=== PATIENT | male | born 1940 | race Hispanic/Latino ===

== ENCOUNTER 2018-05-20 08:27 | Inpatient (IN) | payer OTHER ==
[2018-05-20] MEDS ORDERED: ONDANSETRON 4 MG/2 ML VIAL ONE (09:10)
[2018-05-20] MEDS ORDERED: NA CHLORIDE 0.9% 500 ML ONE (09:10)
[2018-05-20 09:24] LABS: Absolute Lymphocytes (CBC) 0.3 K/uL (0.7-4.9); Absolute Monocytes 0.5 K/uL (0.1-1.3); Absolute Neutrophil 12.3 K/uL (1.8-8.0); Basophils % 0.2 % (0-1.3); Eosinophils % 0.7 % (0-4.4); Hematocrit 35.6 % (39.6-49.0); Lymphocytes % 2.2 % (15.3-44.8); MPV 8.6 fL (7.6-11.3); RBC Red Blood Cell Count 4.08 M/uL (4.33-5.43)
[2018-05-20 09:39] LABS: Albumin 2.6 g/dL (3.4-5.0); Bilirubin Direct 0.5 mg/dL (0-0.2); Bilirubin Total 1.1 mg/dL (0.2-1.0); Potassium 2.8 mmol/L (3.5-5.1); Protein, Total 7.2 g/dL (6.4-8.2)
[2018-05-20] MEDS ORDERED: KCL 20 MEQ/100 mL IVPB 20 MEQ/100 ML BAG IV ONE (10:31)
[2018-05-20] MEDS ORDERED: NA CHLORIDE 0.9% 250 ML ONE (10:31)
--- NOTE | 2018-05-20 10:35 | RAD REPORT ---
EXAM DESCRIPTION: CT - Abdomen Pelvis Wo Contrast - 05/20/2018 10:27 am CLINICAL HISTORY: Abdominal pain. N/V/D, hypotension COMPARISON: No comparisons TECHNIQUE: CT imaging of the abdomen and pelvis was performed without contrast. Solid organ, bowel a nd vascular assessment is limited due to lack of IV and oral contrast. All CT scans are performed using dose optimization technique as appropriate and may include automated exposure control or mA/KV adjustment according to patient size. FINDINGS: Tree-in-bud opacities are seen in the right middle lobe and both lower lobes. The liver, spleen, pancreas, adrenal glands are within normal limits for a limited non-contrast exami nation. Tiny caliceal renal calculi suspected bilaterally without hydronephrosis. Moderate aortic ath erosclerosis is seen. A significant thickening of the colon is present throughout its course suggesting moderate colitis. D iverticula are present in the sigmoid colon as well. The appendix is normal. Left total hip hardware is noted. Advanced right hip osteoarthritis. Moderate lumbosacral degenerativ e changes.Small right inguinal hernia containing fat and fluid. IMPRESSION: Moderate pancolitis is seen without pneumatosis coli or bowel obstruction. No evidence o f intra-abdominal abscess. Tree-in-bud opacities particularly in the right middle lobe probably are secondary to aspiration. A limited non-contrast examination was performed as detailed.
--- NOTE | 2018-05-20 10:53 | ER ---
Nurse's Notes [facility] Name: Yonny Gamez Age: 77 yrs Sex: Male : 1940 Arrival Date: 05/20/2018 Time: 08:33 Bed 14 Private MD: Wayne Geller R Diagnosis: Pancolitis;Dehydration;Hypokalemia;Hypotension Presentation: 05/20 08:35 Initial Sepsis Screen: Does the patient meet any 2 criteria? No. Patient's initial rb1 sepsis screen is negative. Does the patient have a suspected source of infection? No. Patient's initial sepsis screen is negative. 08:43 Presenting complaint: Patient states: diarrhea x 1 week with intermittent abd cramping. ss N/V that began this morning. Denies fever, also c/o fatigue. Transition of care: patient was not received from another setting of care. Onset of symptoms was May 13, 2018. Risk Assessment: Do you want to hurt yourself or someone else? Patient reports no desire to harm self or others. Initial Sepsis Screen:. Care prior to arrival: None. 08:43 Method Of Arrival: Ambulatory ss 08:43 Acuity: LORA 2 ss Historical: - Allergies: 08:45 No Known Allergies; ss - Home Meds: 08:45 acetaminophen 650 mg Oral TbER as needed [Active]; acetaminophen-codeine 300-30 mg Oral rb1 tab 1 tab every 6 hours [Active]; alprazolam 0.25 mg Oral tab 1 tab [Active]; aspirin 81 mg Oral TbEC 1 tab once daily [Active]; atorvastatin 10 mg Oral tab 1 tab once daily [Active]; benazepril 40 mg Oral tab 1 tab once daily [Active]; bumetanide 2 mg Oral tab 1.5 tab 2 times per day [Active]; carvedilol 12.5 mg Oral tab 1 tab 2 times per day [Active]; Entresto 24-26 mg Oral tab [Active]; finasteride 5 mg Oral tab 1 tab once daily [Active]; furosemide 40 mg Oral tab 1 tab once daily [Active]; gabapentin 100 mg Oral cap 1 caps 3 times per day [Active]; nitroglycerin 0.4 mg SL subl 1 tab every 5 minutes [Active]; sodium chloride 1 gram Oral tab [Active]; spironolactone 25 mg Oral tab 1 tab once daily [Active]; tamsulosin 0.4 mg Oral cp24 1 cap once daily [Active]; - PMHx: 08:45 CAD; CHF; enlarged prostate; Hernia; Hypertension; ss - PSHx: 08:45 prostate surgery; CABG; Hernia repair; left hip; ss - Immunization history:: Adult Immunizations up to date. - Social history:: Smoking status: Patient/guardian denies using tobacco. - Ebola Screening: : Patient denies exposure to infectious person Patient denies travel to an Ebola-affected area in the 21 days before illness onset. - Family history:: not pertinent. - Hospitalizations: : No recent hospitalization is reported. Screenin:35 Abuse screen: Denies threats or abuse. Nutritional screening: No deficits noted. rb1 Tuberculosis screening: No symptoms or risk factors identified. Fall Risk No fall in past 12 months (0 pts). Secondary diagnosis (15 points) impaired mobility, IV access (20 points). Ambulatory Aid- Crutches/Cane/Walker (15 pts). Gait- Impaired (20 pts.). Mental Status- Oriented to own ability (0 pts). Total Dubois Fall Scale indicates High Risk Score (45 or more points). Fall prevention measures have been instituted. Side Rails Up X 2 Placed Close to Nursing Station 1:1 Attendant Assigned Frequent Obs/Assessments Occuring Family Present and informed to notify staff if the need to leave the bedside As available patient and family educated on Fall Prevention Program and Strategies. Assessment: 08:35 General: Appears uncomfortable, slender, Behavior is calm, cooperative, Reports fatigue rb1 for Denies fever. Neuro: Level of Consciousness is awake, alert, obeys commands, Oriented to person, place, time, situation. Cardiovascular: Capillary refill < 3 seconds is brisk in bilateral fingers. Respiratory: Airway is patent Respiratory effort is even, unlabored, Respiratory pattern is regular, symmetrical. GI: Abdomen is non-distended, Reports diarrhea, nausea, vomiting. : No signs and/or symptoms were reported regarding the genitourinary system. Derm: Skin is pink, warm \T\ dry. 08:35 Pain: Denies pain. rb1 09:35 Reassessment: Patient appears in no apparent distress at this time. No changes from rb1 previously documented assessment. Family at bedside. 10:00 Reassessment: pt. is unable to drink the contrast; provider notified. Received order to rb1 scan without the contrast. 10:02 Reassessment: Called CT to inform them that Dr. Hugo said to scan the pt without the rb1 contrast. 10:30 Reassessment: Patient appears in no apparent distress at this time. Patient and/or rb1 family updated on plan of care and expected duration. Pain level reassessed. Patient is alert, oriented x 3, equal unlabored respirations, skin warm/dry/pink. Family at bedside. Patient denies pain at this time. 11:30 Reassessment: Patient appears in no apparent distress at this time. No changes from rb1 previously documented assessment. 12:30 Reassessment: Patient appears in no apparent distress at this time. Patient and/or rb1 family updated on plan of care and expected duration. Pain level reassessed. Patient is alert, oriented x 3, equal unlabored respirations, skin warm/dry/pink. Patient denies pain at this time. 12:35 Reassessment: Called report to TYREL Rey. Information from the SBAR was given. All rb1 questions asked and answered. Vital Signs: 08:45 BP 88 / 51; Resp 18; Temp 97.6(TE); Weight 61.23 kg; Height 5 ft. 6 in. (167.64 cm); Pain 0/10; 09:30 Pulse 93; Pulse Ox 96% on R/A; la1 09:30 BP 93 / 59; Pulse 94; Resp 24; Pulse Ox 96% on R/A; rb1 10:00 BP 87 / 53; Pulse 94; Resp 14; Pulse Ox 95% on R/A; dh3 10:38 BP 86 / 56; Pulse 92; Resp 13; Pulse Ox 97% on R/A; dh3 11:30 BP 92 / 65; Pulse 90; Resp 27; Pulse Ox 97% on R/A; rb1 12:00 BP 93 / 58; Pulse 90; Resp 30; Pulse Ox 98% on R/A; Pain 0/10; rb1 12:07 BP 93 / 58; Pulse 90; Resp 22; Pulse Ox 97% on R/A; rb1 08:45 Body Mass Index 21.79 (61.23 kg, 167.64 cm) ED Course: 08:33 Patient arrived in ED. sb2 08:33 Wayne Geller MD is Private Physician. sb2 08:35 Le[facility] Skelton F[facility] is [facility]. nh 08:35 Leno Hugo MD is Attending Physician. nh 08:35 Patient has correct armband on for positive identification. Bed in low position. Call rb1 light in reach. Side rails up X 1. electronic device monitor on. Pulse ox on. NIBP on. Warm blanket given. Pillow given. 08:36 Leno Hugo MD is Attending Physician. rn 08:38 Carrie Malik RN is Primary Nurse. rb1 08:44 Triage completed. ss 08:45 Arm band placed on right wrist. ss 09:01 EKG done, by ED staff, reviewed by Leno Hugo MD. dh3 09:10 Inserted saline lock: 22 gauge in right antecubital area, using aseptic technique. rb1 Blood collected. 10:24 CT completed. Patient tolerated procedure well. Patient moved back from CT. mw3 10:28 Abdomen In Process Unspecified. EDMS 10:51 Tacos Caldera MD is Hospitalizing Provider. rn 11:00 Inserted saline lock: 22 gauge in left forearm, using aseptic technique. rb1 12:50 No provider procedures requiring assistance completed. Patient admitted, IV remains in rb1 place. Administered Medications: 09:10 Drug: NS 0.9% 500 ml Route: IV; Rate: bolus; Site: right antecubital; rb1 09:43 Follow up: IV Status: Completed infusion rb1 09:10 Drug: Zofran 4 mg Route: IVP; Site: right antecubital; rb1 10:44 Follow up: Response: No adverse reaction; Nausea is decreased rb1 10:40 Drug: Potassium Chloride 20 mEq Route: IV; Rate: calculated rate; Site: right rb1 antecubital; 11:00 Follow up: Response: No adverse reaction rb1 12:50 Follow up: IV Status: Infusion continued upon admission rb1 10:40 Drug: NS 0.9% 250 ml Route: IV; Rate: calculated rate; Site: right antecubital; rb1 12:50 Follow up: IV Status: Infusion continued upon admission rb1 10:46 CANCELLED (provider changed order): Rocephin - (cefTRIAXone) 1 grams IVPB once over 30 rb1 mins; (mix in 50 mL NS) 11:00 Drug: Rocephin 1 grams Route: IV; Rate: calculated rate; Site: left forearm; rb1 11:30 Follow up: Response: No adverse reaction; IV Status: Completed infusion rb1 11:05 Drug: Flagyl 500 mg Volume: 100 ml; Route: IVPB; Rate: 200 ml/hr; Infused Over: 30 rb1 mins; Site: left forearm; 11:40 Follow up: Response: No adverse reaction; IV Status: Completed infusion rb1 Outcome: 10:53 Decision to Hospitalize by Provider. rn 12:50 Patient left the ED. rb1 12:50 Admitted to Med/surg accompanied by tech, family with patient, via wheelchair, room rb1 215, with chart, Report called to TYREL Rey 12:50 Condition: stable 12:50 Instructed on the need for admit. Signatures: Dispatcher [employer] EDMS Leanna Skelton, PROCEDURE TECH PROCEDURE TECH in Leno Hugo MD MD rn Smirch, Shelby, RN RN Armando Aldridge RN RN laCarrie Vigil RN RN rb1 Suri Gamez 3 Natasha Jorgensen 2 Jessi Christopher mw3 Corrections: (The following items were deleted from the chart) 13:52 13:50 Patient left the ED. rb1 rb1
--- NOTE | 2018-05-20 10:53 | EDPHYS ---
Physician Documentation [facility] Name: Yonny Gamez Age: 77 yrs Sex: Male : 1940 Arrival Date: 05/20/2018 Time: 08:33 Bed 14 Private MD: Wayne Geller R ED Physician Leno Hugo HPI: 05/20 09:09 This 77 yrs old Male presents to ER via Ambulatory with complaints of rn Nausea/Vomiting/Diarrhea. 09:09 The patient presents to the emergency department with nausea, vomiting, diarrhea. rn Onset: The symptoms/episode began/occurred 2 day(s) ago. Possible causes: unknown. The symptoms are aggravated by nothing. The symptoms are alleviated by nothing. Severity of symptoms: At their worst the symptoms were moderate in the emergency department the symptoms are unchanged. The patient has not experienced similar symptoms in the past. Reports nausea/vomiting/diarrhea, began 2 days ago, assoc with generalized weakness and unable to tolerate PO, mild abd cramping but no focal pain. No blood in diarrhea or emesis. . Historical: - Allergies: 08:45 No Known Allergies; ss - Home Meds: 08:45 acetaminophen 650 mg Oral TbER as needed [Active]; acetaminophen-codeine 300-30 mg Oral rb1 tab 1 tab every 6 hours [Active]; alprazolam 0.25 mg Oral tab 1 tab [Active]; aspirin 81 mg Oral TbEC 1 tab once daily [Active]; atorvastatin 10 mg Oral tab 1 tab once daily [Active]; benazepril 40 mg Oral tab 1 tab once daily [Active]; bumetanide 2 mg Oral tab 1.5 tab 2 times per day [Active]; carvedilol 12.5 mg Oral tab 1 tab 2 times per day [Active]; Entresto 24-26 mg Oral tab [Active]; finasteride 5 mg Oral tab 1 tab once daily [Active]; furosemide 40 mg Oral tab 1 tab once daily [Active]; gabapentin 100 mg Oral cap 1 caps 3 times per day [Active]; nitroglycerin 0.4 mg SL subl 1 tab every 5 minutes [Active]; sodium chloride 1 gram Oral tab [Active]; spironolactone 25 mg Oral tab 1 tab once daily [Active]; tamsulosin 0.4 mg Oral cp24 1 cap once daily [Active]; - PMHx: 08:45 CAD; CHF; enlarged prostate; Hernia; Hypertension; ss - PSHx: 08:45 prostate surgery; CABG; Hernia repair; left hip; ss - Immunization history:: Adult Immunizations up to date. - Social history:: Smoking status: Patient/guardian denies using tobacco. - Ebola Screening: : Patient denies exposure to infectious person Patient denies travel to an Ebola-affected area in the 21 days before illness onset. - Family history:: not pertinent. - Hospitalizations: : No recent hospitalization is reported. ROS: 09:09 Constitutional: Negative for fever, chills, and weight loss, Eyes: Negative for injury, rn pain, redness, and discharge, Neck: Negative for injury, pain, and swelling, Cardiovascular: Negative for chest pain, palpitations, and edema, Respiratory: Negative for shortness of breath, cough, wheezing, and pleuritic chest pain, Abdomen/GI: Negative for constipation, MS/Extremity: Negative for injury and deformity, Skin: Negative for injury, rash, and discoloration, Neuro: Negative for headache, numbness, tingling, and seizure. Exam: 09:09 Constitutional: This is a well developed, well nourished patient who is awake, alert, rn and in no acute distress. Head/Face: Normocephalic, atraumatic. Eyes: Sunken syes ENT: dry MM Cardiovascular: Irregular rhythm, no murmur, regular rate Respiratory: Lungs have equal breath sounds bilaterally, clear to auscultation and percussion. No rales, rhonchi or wheezes noted. No increased work of breathing, no retractions or nasal flaring. Abdomen/GI: soft, non-tender MS/ Extremity: Pulses equal, no cyanosis. Neurovascular intact. Full, normal range of motion. Equal circumference. Neuro: Awake and alert, GCS 15, oriented to person, place, time, and situation. Cranial nerves II-XII grossly intact. Motor strength 5/5 in all extremities. Sensory grossly intact. Vital Signs: 08:45 BP 88 / 51; Resp 18; Temp 97.6(TE); Weight 61.23 kg; Height 5 ft. 6 in. (167.64 cm); ss Pain 0/10; 09:30 Pulse 93; Pulse Ox 96% on R/A; la1 09:30 BP 93 / 59; Pulse 94; Resp 24; Pulse Ox 96% on R/A; rb1 10:00 BP 87 / 53; Pulse 94; Resp 14; Pulse Ox 95% on R/A; dh3 10:38 BP 86 / 56; Pulse 92; Resp 13; Pulse Ox 97% on R/A; dh3 11:30 BP 92 / 65; Pulse 90; Resp 27; Pulse Ox 97% on R/A; rb1 12:00 BP 93 / 58; Pulse 90; Resp 30; Pulse Ox 98% on R/A; Pain 0/10; rb1 12:07 BP 93 / 58; Pulse 90; Resp 22; Pulse Ox 97% on R/A; rb1 08:45 Body Mass Index 21.79 (61.23 kg, 167.64 cm) ss MDM: 08:36 Patient medically screened. rn 10:44 Differential diagnosis: Nonspecific abd pain, appendicitis, diverticulitis, viral rn gastroenteritis, gastroenteritis. Data reviewed: vital signs, nurses notes, lab test result(s), radiologic studies, CT scan, and as a result, I will admit patient. Counseling: I had a detailed discussion with the patient and/or guardian regarding: the historical points, exam findings, and any diagnostic results supporting the discharge/admit diagnosis, lab results, radiology results, the need for further work-up and treatment in the hospital. Response to treatment: the patient's symptoms have mildly improved after treatment, and as a result, I will admit patient. Admission orders: after a detailed discussion of the patient's condition and case, the admit orders are written by me. 10:46 ED course: Pt admitted for pancolitis and dehydration with hypotension, gentle rn hydration due to CHF. Admitted to Dr. Caldera. . 05/20 08:53 Order name: Basic Metabolic Panel; Complete Time: 10:16 rn 05/20 08:53 Order name: CBC with Diff; Complete Time: 09:39 rn 05/20 08:53 Order name: Creatinine for Radiology; Complete Time: 09:39 rn 05/20 08:53 Order name: Hepatic Function; Complete Time: 10:16 rn 05/20 08:53 Order name: Lipase; Complete Time: 10:16 rn 05/20 10:26 Order name: Abdomen ; Complete Time: 10:36 EDMS 05/20 08:53 Order name: IV Saline Lock; Complete Time: 09:17 rn 05/20 08:53 Order name: Labs collected and sent; Complete Time: 09:18 rn 05/20 08:53 Order name: EKG; Complete Time: 08:54 rn 05/20 08:53 Order name: EKG - Nurse/Tech; Complete Time: 09:02 rn Administered Medications: 09:10 Drug: NS 0.9% 500 ml Route: IV; Rate: bolus; Site: right antecubital; rb1 09:43 Follow up: IV Status: Completed infusion rb1 09:10 Drug: Zofran 4 mg Route: IVP; Site: right antecubital; rb1 10:44 Follow up: Response: No adverse reaction; Nausea is decreased rb1 10:40 Drug: Potassium Chloride 20 mEq Route: IV; Rate: calculated rate; Site: right rb1 antecubital; 11:00 Follow up: Response: No adverse reaction rb1 12:50 Follow up: IV Status: Infusion continued upon admission rb1 10:40 Drug: NS 0.9% 250 ml Route: IV; Rate: calculated rate; Site: right antecubital; rb1 12:50 Follow up: IV Status: Infusion continued upon admission rb1 10:46 CANCELLED (provider changed order): Rocephin - (cefTRIAXone) 1 grams IVPB once over 30 rb1 mins; (mix in 50 mL NS) 11:00 Drug: Rocephin 1 grams Route: IV; Rate: calculated rate; Site: left forearm; rb1 11:30 Follow up: Response: No adverse reaction; IV Status: Completed infusion rb1 11:05 Drug: Flagyl 500 mg Volume: 100 ml; Route: IVPB; Rate: 200 ml/hr; Infused Over: 30 rb1 mins; Site: left forearm; 11:40 Follow up: Response: No adverse reaction; IV Status: Completed infusion rb1 Disposition: 05/20/18 10:53 Hospitalization ordered by Tacos Caldera for Inpatient Admission. Preliminary diagnosis are Pancolitis, Dehydration, Hypokalemia, Hypotension. - Bed requested for Telemetry/MedSurg (Inpatient). - Status is Inpatient Admission. rb1 - Condition is Stable. - Problem is new. - Symptoms have improved. UTI on Admission? No Signatures: Dispatcher [employer] EDBrianna Johnson Roman, MD MD rn Smirch, Shelby, RN RN ss Barber, Rebecca, RN RN rb1 Corrections: (The following items were deleted from the chart) 10:26 08:53 Abdomen Pelvis W Con+CT.RAD.BRZ ordered. EDMS EDMS 10:46 10:37 Rocephin - (cefTRIAXone) 1 grams IVPB once over 30 mins; (mix in 50 mL NS) rb1 ordered. rn 11:54 10:53 Hospitalization Ordered by Tacos Caldera MD for Inpatient Admission. Preliminary bd diagnosis is Pancolitis; Dehydration; Hypokalemia; Hypotension. Bed requested for Telemetry/MedSurg (Inpatient). Status is Inpatient Admission. Condition is Stable. Problem is new. Symptoms have improved. UTI on Admission? No. rn 13:50 11:54 05/20/2018 10:53 Hospitalization Ordered by Tacos Caldera MD for Inpatient rb1 Admission. Preliminary diagnosis is Pancolitis; Dehydration; Hypokalemia; Hypotension. Bed requested for Telemetry/MedSurg (Inpatient). Status is Inpatient Admission. Condition is Stable. Problem is new. Symptoms have improved. UTI on Admission? No. bd
[2018-05-20] MEDS ORDERED: CEFTRIAXONE/SWI 1gm 1 GM/10 ML SYR ONE (10:59)
[2018-05-20] MEDS ORDERED: METRONIDAZOLE 500mg IVPB 500 MG/100 ML BAG IV ONE (10:59)
[2018-05-20] MEDS ORDERED: ACETAMINOPHEN 500 MG TAB PO PRN (12:51)
[2018-05-20] MEDS ORDERED: ONDANSETRON 4 MG/2 ML VIAL IV PRN (12:51)
[2018-05-20] MEDS: GABAPENTIN 300 MG CAP PO SCH ×2 (13:52→20:31)
[2018-05-20] MEDS: NA CHLORIDE 0.9% 1,000 ML IV SCH ×2 (13:53→20:33)
[2018-05-20] MEDS ORDERED: INFLUENZA VACCINE (for 3y+) 0.5 ML DOSE IMVAC ONE (16:00)
[2018-05-20] MEDS: CIPROFLOXACIN 400mg IV 400 MG/200 ML BAG IV SCH (16:10)
[2018-05-20] MEDS: ENOXAPARIN 30 MG/0.3 ML SQ SCH (17:07)
[2018-05-20] MEDS: METRONIDAZOLE 500mg IVPB 500 MG/100 ML BAG IV SCH (17:07)
--- NOTE | 2018-05-20 18:56 | EKG ---
Test Date: 2018-05-20 Test Time: 08:55:45 [employer]: LUCINDA MEASUREMENT RESULTS: Intervals: Rate: 91 MS: QRSD: 166 QT: 456 QTc: 560 [place]: P: MS: QRS: 164 T: 45 INTERPRETIVE STATEMENTS: Atrial fibrillation with premature ventricular or aberrantly conducted complexes Right bundle branch block Septal infarct, age undetermined Abnormal ECG Compared to ECG 06/25/2017 11:36:06 Ventricular premature complex(es) now present Myocardial infarct finding now present Electronically Signed On 05-20-18 18:55:08 SIDE HEMMER by Ortega Flores
[2018-05-20] MEDS ORDERED: CIPROFLOXACIN 400mg IV 400 MG/200 ML BAG IV SCH (21:00)
[2018-05-20 22:35] LABS: Urine Appearance CLOUDY; Urine Bilirubin NEGATIVE (NEG); Urine Blood NEGATIVE (NEG); Urine Color DK YELLOW; Urine Glucose NEGATIVE (NEG); Urine Protein NEGATIVE (NEG); Urine Specific Gravity 1.015 (1.005-1.030); Urine Urobilinogen 0.2 mg/dL (0.2-1.0)
[2018-05-20 22:51] LABS: Urine Microscopic Reflex ORDER UMIC
[2018-05-20 23:57] LABS: Urine Amorphous Sediment 1+ /HPF (NONE SEEN); Urine Bacteria <20 /HPF (NONE SEEN); Urine Culture Reflex Order NOT NEEDED; Urine RBC NONE SEEN /HPF (NONE SEEN)
[2018-05-21] MEDS: KCL 20 MEQ/100 mL IVPB 20 MEQ/100 ML BAG IV SCH ×2 (00:03→03:02)
[2018-05-21] MEDS: METRONIDAZOLE 500mg IVPB 500 MG/100 ML BAG IV SCH ×3 (00:03→17:18)
--- NOTE | 2018-05-21 00:21 | HP ---
Date of Admission: 05/20/2018 Primary Care Physician: Dr. Estrada. Code Status: Full code. The patient does have a living will but no medical npkin-zd-ahswlblq. Chief Complaint: Nausea, vomiting, diarrhea. History Of Present Illness: The patient is a 77-year-old male with past medical history of congestiv e heart failure, hyponatremia, hypertension, coronary artery disease status post CABG, benign prostat ic hyperplasia, who was in his usual state of health until 5 days prior to admission when the patient had sudden onset of diarrhea. The patient also had some nausea and vomiting on the day of admission . The patient does have some mild abdominal pain, which is crampy in nature and radiating. The diane ent has had multiple episodes of diarrhea, which were nonbloody. Denies any recent use of antibiotic s. The patient's symptoms are constant, moderate, progressively worsening. The patient came into e ER for further evaluation. Upon workup, he was found to have white count of 13,000. He was hypote nsive, did have some electrolyte abnormalities including low sodium and potassium. Kidney function w as elevated above his usual at 2.3. CT scan of the abdomen and pelvis showed moderate pancolitis wit hout abscess and tree-in-bud opacities particularly in the right middle lobe, could be secondary to a spiration. The patient was started on IV antibiotics and referred for admission. The patient was gi jose 500 mL bolus with a slight improvement in his blood pressure. When seen in the ER, he was awake, alert, oriented x3, in some mild distress. Past Medical History: Chronic kidney disease stage 3, congestive heart failure, systolic dysfunction , last known EF 49%, chronic hyponatremia, hypertension, coronary artery disease status post CABG, be nign prostatic hyperplasia. Past Surgical History: Coronary artery bypass graft, hernia surgery, hip surgery, and prostate surge ry. Allergies: NO KNOWN DRUG ALLERGIES. Medications: List reviewed. Social History: The patient denies tobacco use, alcohol use, or illicit drug use. The patient is ma rried, has a son. Lives with his . Does use a walker for ambulation. Does need some assistance with his activities of daily living. Family History: Heart disease, runs strongly in the family. Review of Systems: An 11-point systems reviewed, negative except as per HPI. Physical Examination: Vital Signs: Blood pressure 88/51, respirations 18, temperature 97.6, pulse 93. General: Awake, alert, oriented x3. Ill-appearing elderly male. HEENT: Normocephalic, atraumatic. PERRLA. EOMI. Dry mucous membranes. Oropharynx is clear. Poor dentition. Conjunctivae anicteric. Neck: Supple. No JVD. Trachea midline. CV: S1, S2 irregular. Peripheral pulses present. Respiratory: Moving air well bilaterally. No wheezing or stridor. No use of accessory muscles. Gastrointestinal: Abdomen is soft. Mild tenderness to palpation in the epigastric region. No rebou nd or guarding. Bowel sounds are positive. Extremities: No clubbing, cyanosis, or edema. No calf tenderness. Neuro: Cranial nerves 2-12 intact grossly. No focal neurological deficit. Speech is normal. Skin: No rashes. Normal skin turgor. Psych: Mood is okay. Affect is full. Insight and judgment are good. Laboratory Data: Sodium 133, potassium 2.8, chloride 96, CO2 29, BUN 79, creatinine 2.3, glucose 156 , calcium 8.1, total bilirubin 1.1, AST 14, ALT 11, albumin 2.6, lipase 69. WBC 13.2, H and H 11.9 a nd 35.6, platelets 215, neutrophils 92%. CT scan of the abdomen and pelvis shows moderate pancolitis without pneumatosis coli or bowel obstruction. No evidence of intraabdominal abscess. Tree-in-bud opacities particularly in the right middle lobe, probably secondary to aspiration. Limited noncontra st examination performed as detailed. Liver, spleen, pancreas, adrenal glands within normal limits. Moderate aortic atherosclerosis seen. Assessment And Plan: A 77-year-old male with: 1.Pancolitis. We will start on IV antibiotics and keep n.p.o. for now. 2.Acute hypotension, may be related to infection or developing early sepsis. White count elevated a t 13,000. We will check procalcitonin level. Continue with gentle IV fluid hydration due to history of congestive heart failure. 3.Hypokalemia. Replace and monitor. 4.Systolic congestive heart failure, chronic. Monitor I's and O's. Fluid restriction. 5.Chronic hyponatremia. Sodium is 133. We will continue to monitor closely. 6.Coronary artery disease status post coronary artery bypass graft, [place] artery, [place] heart with out angina. 7.Acute on chronic kidney disease stage 3. We will consult Nephrology. Continue with IV fluids and monitor creatinine. Avoid nephrotoxins and NSAIDs. 8.Benign prostatic hyperplasia. 9.Gastrointestinal and deep venous thrombosis prophylaxis with PPI and Lovenox, renally dosed. Admit the patient to Med-Surg, place as inpatient with remote cardiac telemetry. The patient does se em to have some signs of aspiration on the CT scan. We will keep n.p.o. for now. Speech Therapy sanjuanita luation. Continue with IV antibiotics. /YUNG Voice ID: [id number]
--- NOTE | 2018-05-21 02:41 | CON ---
Date of Consultation: 05/20/2018 Chief Complaint: Shortness of breath, generalized weakness, cardiorenal syndrome, acute on chronic kidney injury. History Of Present Illness: The patient presented to the hospital with generalized weakness. He has chronic kidney disease. Baseline creatinine is 1.4. On arrival to the hospital, blood work showed creatinine up to 2.33. Renal function has not improved over last 24 hours. The patient has nonoliguric urine output. The patient has moderately severe nonoliguric acute kidney injury secondary to cardiorenal syndrome. He is treated with diuretics and an antibiotic was started for possible pneumonia. The patient was found to have hypokalemia and replacement was ordered. The patient presented to the hospital because of nausea, vomiting, diarrhea, generalized weakness. He was complaining of dyspnea at rest, very severe fatigue, and had nausea, vomiting, and diarrhea. He denies chest pain, syncope. His symptoms began 2 days ago associated with severe fatigue. He was unable to tolerate by mouth medication. He was complaining of mild abdominal cramping. Review of Systems: Constitutional: Denies fever, chills. Eyes: Denies vision changes. Ears, Nose, Mouth and Throat: Denies sore throat, earache. Respiratory: Denies wheezing. Has dyspnea on exertion. GI: Denies melena, hematemesis. Complaining of nausea, vomiting, and diarrhea. Denies bright red blood per rectum. : Denies dysuria, hematuria, incomplete voiding. All other systems reviewed and all are negative. Past Medical History: Hypertension, BPH, hernia, coronary artery disease, congestive heart failure, chronic kidney disease stage 3, cardiorenal syndrome, history of acute kidney injury, previously admitted to the hospital back in August 2018, coronary artery disease, ejection fraction 40%, diastolic and systolic dysfunction, dilated left atrium on echo, hyperlipidemia. Past Surgical History: Prostate surgery back in 2003, CABG in 1999, hip replacement 2013, myocardial infarction, cardiorenal syndrome. Social History: Denies tobacco, alcohol, or illicit drugs. Family History: No kidney disease in the family. Physical Examination: General: Not in acute distress. Eyes: Anicteric sclerae. EOMI. Ears, Nose, Mouth, and Throat: Oral mucosa moist. No pallor. Neck: Supple. No JVD. No bruits. Lungs: Crackles bilaterally at bases. Heart: S1, S2. No pericardial friction rub. Abdomen: Soft, benign, nontender. No rebound. No guarding. No CVA tenderness. Extremities: No clubbing, no cyanosis, slight edema. Neurological: Moving extremities. Cranial nerves intact. Psychiatric: Alert, oriented x3. Normal affect. Skin: Warm and dry. No skin rashes. Laboratory Data: Sodium 133, potassium 2.8, chloride 96, CO2 29, BUN 79, creatinine 2.33, glucose 156, serum total protein 7.2, albumin 2.6. Impression And Plan: Acute on chronic kidney injury, cardiorenal syndrome, hypokalemia replacement was ordered with potassium chloride. The patient will continue Bumex for congestive heart failure with cardiorenal syndrome and acute kidney injury. Monitor electrolytes. Re-evaluate phosphorus and magnesium level. The patient presented with severe fatigue, rule out myocardial infarction. The patient will have troponin evaluated. Nausea, vomiting, diarrhea. The patient will have workup for possible colitis. Advance p.o. intake as tolerated. CT scan of the abdomen and pelvis without contrast was done to rule out ischemic bowel obstruction. Kidney ultrasound will be done. CT scan of the abdomen and pelvis did not demonstrate hydronephrosis. There are tiny calyceal renal calculi suspected bilaterally without hydronephrosis. Monitor urine output when the patient is on diuretic and continue to monitor electrolytes. IV antibiotics started for possible pneumonia. ABRAHAM/YUNG Voice ID: [id number] Report ID: [id number] MTDD
[2018-05-21 06:13] LABS: Absolute Lymphocytes (CBC) 0.5 K/uL (0.7-4.9); Absolute Monocytes 0.4 K/uL (0.1-1.3); Absolute Neutrophil 10.7 K/uL (1.8-8.0); Basophils % 0.1 % (0-1.3); Hematocrit 34.8 % (39.6-49.0); Lymphocytes % 4.4 % (15.3-44.8); MPV 8.7 fL (7.6-11.3); Monocytes % 3.8 % (3.3-12.3)
[2018-05-21 06:35] LABS: Albumin 2.3 g/dL (3.4-5.0); Bilirubin Total 0.7 mg/dL (0.2-1.0); Magnesium 2.5 mg/dL (1.8-2.4); Phosphorus 2.3 mg/dL (2.5-4.9); Potassium 3.7 mmol/L (3.5-5.1); Protein, Total 6.6 g/dL (6.4-8.2)
[2018-05-21] MEDS ORDERED: KCL 20 MEQ/100 mL IVPB 20 MEQ/100 ML BAG IV SCH (08:00)
[2018-05-21] MEDS: ATORVASTATIN 10 MG TAB PO SCH (09:00)
[2018-05-21] MEDS: FINASTERIDE 5 MG TAB PO SCH (09:00)
[2018-05-21] MEDS: GABAPENTIN 300 MG CAP PO SCH ×3 (09:00→20:32)
--- NOTE | 2018-05-21 12:30 | RAD REPORT ---
EXAM DESCRIPTION: RAD - Barium Swallow Modified - 05/21/2018 12:20 pm CLINICAL HISTORY: Dysphagia COMPARISON: None. TECHNIQUE: The patient was given liquid, semi-solid and solid forms of barium. Lateral view fluorosc opic imaging was performed in conjunction with speech pathology service. FINDINGS: There were 28 cine loop sequences obtained. Fluoro time was 4 minutes 25 seconds. Aspiration was observed with little or no cough reflex on thin form of barium and with the tablet. Re sidual contrast in the valleculae and pyriform sinuses. IMPRESSION: Aspiration on thin liquid barium. Additional findings detailed on speech pathology report.
--- NOTE | 2018-05-21 13:05 | PN ---
Date of Progress Note: 05/21/2018 Subjective: Patient seen and examined. Chart reviewed and case discussed with RN. The patient states he is feeling slightly better. Still having some abdominal pain and significant amount of diarrhea. No nausea or vomiting. The patient has been kept n.p.o. due to risk of aspiration. Medications: List reviewed. Physical Examination: Vital Signs: Temperature 97.2, heart rate 97, blood pressure 103/56, respirations 12, O2 95% on room air. General: Awake, alert, oriented x3. Elderly male, somewhat ill-appearing, frail. BMI 21. CV: S1, S2, irregularly irregular. Peripheral pulses present. Respiratory: Moving air well bilaterally. No wheezing or stridor. Gastrointestinal: Abdomen is soft. Mild tenderness to palpation. No guarding or rigidity. Bowel sounds are positive. Extremities: No clubbing, cyanosis, or edema. Neurologic: Nonfocal. Laboratory Data: Sodium 138, potassium 3.7, chloride 104, CO2 24, BUN 70, creatinine 1.71, glucose 120, calcium 7.9, phosphorus 2.3, magnesium 2.5, albumin 2.3. WBC 11.7, H and H 11.7/34.8, platelets 198, neutrophils 90.7. Blood cultures pending. Stool culture pending. C. diff assay is also pending. Assessment And Plan: A 77-year-old male with, 1. Pancolitis. Continue IV antibiotics for now; may be secondary to Clostridium difficile. Clostridium difficile assay is pending. We will follow up with stool culture and continue antibiotics. 2. Hypotension, likely related to infection or developing sepsis. Procalcitonin is elevated. White count is elevated. 3. Systemic inflammatory response syndrome. 4. Hypokalemia. Replace and monitor. 5. Systolic congestive heart failure, chronic. 6. Chronic hyponatremia. Sodium is normalized. 7. Coronary artery disease status post coronary artery bypass graft [place] artery and [place] heart without angina, stable. 8. Dypku-bo-xwhjljv kidney disease stage 3. Appreciate Nephrology input. Creatinine is improved. We will continue IV fluids. We will avoid NSAIDs. 9. Benign prostatic hypertrophy. Continue finasteride. 10. Gastrointestinal and deep venous thrombosis prophylaxis with PPI and Lovenox renally dosed. 11. Right middle lobe pneumonia secondary to aspiration. The patient is n.p.o. at this time pending speech evaluation. Speech therapy is unavailable, was switched to nectar thickened liquids with mechanically ground food. Follow up on stool cultures and C. diff. Likely discharge in the next 24 to 48 hours. /YUNG Voice ID: [id number] Report ID: [id number] MTDD
[2018-05-21] MEDS: NA CHLORIDE 0.9% 1,000 ML IV SCH (15:31)
[2018-05-21] MEDS: CIPROFLOXACIN 400mg IV 400 MG/200 ML BAG IV SCH (17:18)
[2018-05-21] MEDS: ENOXAPARIN 30 MG/0.3 ML SQ SCH (17:18)
[2018-05-21] MEDS: VANCOMYCIN ORAL SOLN 250 MG/5 ML OSYR PO SCH (18:53)
[2018-05-21] MEDS ORDERED: VANCOMYCIN 1 GM/VIAL ONE (20:19)
--- NOTE | 2018-05-22 01:32 | PN ---
Date of Progress Note: 05/21/2018 Chief Complaint: Acute on chronic kidney injury secondary to cardiorenal syndrome, moderately severe, nonoliguric. The patient is responding to diuretic. The patient presented to the hospital because of shortness of breath, generalized weakness. He had diarrhea. He is undergoing workup for C diff colitis. The patient has history of hyponatremia. Sodium level is stable during this admission. Review of Systems: Denies fever, chills. Physical Examination: Lungs: Clear to auscultation bilaterally. Heart: S1, S2. Abdomen: Soft, benign. Extremities: No edema. Impression And Plan: 1. Cardiorenal syndrome, acute on chronic. There is some prerenal azotemia. Continue Bumex. 2. History of benign prostatic hypertrophy. The patient is asymptomatic. 3. History of coronary artery disease. Monitor troponin. 4. Congestive heart failure, cardiorenal syndrome associated with chronic kidney disease stage 3. Avoid nephrotoxic medication. 5. Diarrhea. Pending workup for clostridium difficile colitis. I spent total 36 min including 26 min to coordinate care plan. FARNAZ Voice ID: [id number] Report ID: [id number] MTDD
[2018-05-22] MEDS: NA CHLORIDE 0.9% 1,000 ML IV SCH ×2 (04:13→17:16)
[2018-05-22] MEDS: VANCOMYCIN ORAL SOLN 250 MG/5 ML OSYR PO SCH ×5 (05:22→23:04)
[2018-05-22 05:56] LABS: Albumin 2.2 g/dL (3.4-5.0); Bilirubin Total 0.5 mg/dL (0.2-1.0); Potassium 3.2 mmol/L (3.5-5.1)
[2018-05-22 05:59] LABS: Absolute Lymphocytes (CBC) 0.6 K/uL (0.7-4.9); Absolute Monocytes 0.4 K/uL (0.1-1.3); Absolute Neutrophil 5.7 K/uL (1.8-8.0); Basophils % 0.2 % (0-1.3); Eosinophils % 2.7 % (0-4.4); Hematocrit 33.5 % (39.6-49.0); Lymphocytes % 8.2 % (15.3-44.8); MPV 8.9 fL (7.6-11.3); RBC Red Blood Cell Count 3.82 M/uL (4.33-5.43)
[2018-05-22] MEDS ORDERED: POTASSIUM 25 MEQ EFFERV TAB PO ONE (06:24)
[2018-05-22] MEDS: FINASTERIDE 5 MG TAB PO SCH (08:31)
[2018-05-22] MEDS: GABAPENTIN 300 MG CAP PO SCH ×3 (08:32→21:01)
[2018-05-22] MEDS: ATORVASTATIN 10 MG TAB PO SCH (08:32)
--- NOTE | 2018-05-22 13:24 | P.PN ---
Subjective Date of Service: 05/22/18 Primary Care Provider: Dr. Geller Chief Complaint: Nausea, Vomitting, diarrhea Subjective: No new changes, No C/O voiced, Improving Patient seen and examined at bedside. No family at bedside. Chart reviewed and case discussed with nursing staff. Patient states that he is feeling better, the abdominal pain is improving. He is still having diarrhea, 1 watery, non-bloody BM so far this am. Review of Systems 10-point ROS is otherwise unremarkable Physical Examination - Vital Signs Temperature: 96.4 F Blood Pressure: 115/74 Pulse: 114 Respirations: 16 Pulse Ox (%): 98 - Physical Exam General: Alert, In no apparent distress, Oriented x3 HEENT: Atraumatic, PERRLA, EOMI Neck: Supple, JVD not distended Respiratory: Clear to auscultation bilaterally, Normal air movement Cardiovascular: Normal S1 S2, Irregular heart rate/rhythm (Irregularly irregular ) Gastrointestinal: Normal bowel sounds, Non-distended, No rebound, No guarding, Tenderness (Mild, diffuse abdominal tenderness on palpation) Musculoskeletal: No tenderness Integumentary: No rashes Neurological: Normal speech, Normal tone, Normal affect Lymphatics: No axilla or inguinal lymphadenopathy Assessment And Plan - Current Problems (Diagnosis) (1) Pancolitis Current Visit: Yes Status: Acute (2) Hypotension Current Visit: Yes Status: Acute Qualifiers: Hypotension type: unspecified hypotension type Qualified Code(s): I95.9 - Hypotension, unspecified (3) SIRS (systemic inflammatory response syndrome) Current Visit: Yes Status: Acute (4) Hypokalemia Current Visit: Yes Status: Acute (5) Coronary artery disease Current Visit: Yes Status: Chronic Qualifiers: Coronary Disease-Associated Artery/Lesion type: bypass graft [place] vs. transplanted heart: [place] heart Associated angina: without angina Qualified Code(s): I25.810 - Atherosclerosis of coronary artery bypass graft(s) without angina pectoris (6) Acute kidney injury superimposed on chronic kidney disease Current Visit: Yes Status: Acute (7) BPH (benign prostatic hyperplasia) Current Visit: Yes Status: Acute (8) CKD (chronic kidney disease) stage 3, GFR 30-59 ml/min Current Visit: Yes Status: Chronic (9) Congestive heart failure (CHF) Current Visit: Yes Status: Chronic Qualifiers: Heart failure type: systolic Heart failure chronicity: chronic Qualified Code(s): I50.22 - Chronic systolic (congestive) heart failure - Plan This is a 76 yr old male with: Pancolitis (Acute) K51.00 secondary to Clostridium Difficile positive stool cultures - continue PO vancomycin. Hypotension (Acute) I95.9 Improving/stable blood pressures. Continue to monitor. Likely due to SIRS/infectious process SIRS (systemic inflammatory response syndrome) (Acute) R65.10 Improving white blood cell count Hypokalemia (Acute) E87.6 Improved. Continue to replete and monitor per protocol Coronary artery disease (Chronic) I25.10 Stable Acute kidney injury superimposed on chronic kidney disease (Acute) N17.9, N18.9 CKD (chronic kidney disease) stage 3, GFR 30-59 ml/min (Chronic) N18.3 Nephrology consulted, appreciated recommendations. Improving creatinine. Avoid nephrotoxins/NSAIDs BPH (benign prostatic hyperplasia) (Acute) N40.0 Continue finasteride Congestive heart failure (CHF) (Chronic) I50.9 Stable, continue home medications. Right Middle Lobe pneumonia, Likely 2/2 aspiration MBS study done, recommed modified diet; Continue mechanically soft diet and thin liquids. Speech therapy on board. DVT prophylaxis: Lovenox GI prophylaxis: Not needed Diet: Heart Healthy Disposition: Pending symptomatic improvement. This is Dr. Geller's patient, we are managing until Dr. Geller returns tomorrow 05/23/18. We will transfer care to his service tomorrow. Physician Review: Patient Assessed, Agree with Above Assessment and Plan Time Spent Managing PTS Care (In Minutes): 35
[2018-05-22] MEDS ORDERED: POTASSIUM CL SA 10 MEQ TAB PO ONE (13:43)
[2018-05-22 14:05] LABS: Absolute Lymphocytes (CBC) 0.4 K/uL (0.7-4.9); Absolute Monocytes 0.4 K/uL (0.1-1.3); Absolute Neutrophil 6.2 K/uL (1.8-8.0); Basophils % 0.4 % (0-1.3); Eosinophils % 2.3 % (0-4.4); Hematocrit 35.4 % (39.6-49.0); MPV 8.6 fL (7.6-11.3); Monocytes % 5.7 % (3.3-12.3); RBC Red Blood Cell Count 3.97 M/uL (4.33-5.43)
[2018-05-22 14:14] LABS: Albumin 2.4 g/dL (3.4-5.0); Bilirubin Total 0.5 mg/dL (0.2-1.0); Potassium 3.8 mmol/L (3.5-5.1); Protein, Total 6.6 g/dL (6.4-8.2)
[2018-05-22 14:42] LABS: Blood Morphology Comment NOT SEEN (NOT SEEN); Platelet Estimate ADEQ; Urine White Blood Cell Casts OK
[2018-05-22] MEDS: ENOXAPARIN 30 MG/0.3 ML SQ SCH (17:17)
[2018-05-22 18:29] LABS: Magnesium 2.7 mg/dL (1.8-2.4); Phosphorus 1.2 mg/dL (2.5-4.9); Potassium 4.2 mmol/L (3.5-5.1)
--- NOTE | 2018-05-22 21:50 | PN ---
Date of Progress Note: 05/22/2018 Chief Complaint: Ongyx-mx-icweymk kidney injury. History Of Present Illness: The patient has history of chronic kidney disease stage 3, cardiorenal s yndrome, moderately severe pcuap-yv-ktbvyxt kidney injury. The patient is undergoing workup for renee vazquez. Renal function is improving gradually. The patient today complains of fatigue. Review of Systems: Denies PND, orthopnea. Denies melena, hematemesis. Physical Examination: Lungs: Clear to auscultation bilaterally. Heart: S1, S2. Abdomen: Soft, benign. Extremities: No edema. Impression And Plan: 1.Jnhzw-dr-ksqdsvs kidney injury with some prerenal azotemia. The patient was treated with Bumex. 2.Chronic cardiorenal syndrome with congestive heart failure. Volemia is in acceptable control. 3.History of coronary artery disease. Monitor troponin. 4.History of benign prostatic hypertrophy. The patient is asymptomatic. 5.Diarrhea. Pending workup for clostridium difficile colitis. 6.Congestive heart failure associated with chronic kidney disease stage 3. 7.Cardiorenal syndrome. Avoid nephrotoxic medication. ABRAHAM/MODMatt Voice ID: [id number] Report ID: [id number]
[2018-05-23] MEDS: VANCOMYCIN ORAL SOLN 250 MG/5 ML OSYR PO SCH ×4 (05:01→23:25)
[2018-05-23 06:03] LABS: Absolute Lymphocytes (CBC) 0.5 K/uL (0.7-4.9); Absolute Monocytes 0.4 K/uL (0.1-1.3); Absolute Neutrophil 3.7 K/uL (1.8-8.0); Basophils % 0.3 % (0-1.3); Hematocrit 32.9 % (39.6-49.0); Lymphocytes % 11.2 % (15.3-44.8); MPV 8.9 fL (7.6-11.3); Monocytes % 8.9 % (3.3-12.3); RBC Red Blood Cell Count 3.74 M/uL (4.33-5.43)
[2018-05-23 06:13] LABS: Albumin 2.3 g/dL (3.4-5.0); Bilirubin Total 0.4 mg/dL (0.2-1.0); Protein, Total 6.2 g/dL (6.4-8.2)
[2018-05-23] MEDS: NA CHLORIDE 0.9% 1,000 ML IV SCH ×2 (06:25→16:34)
[2018-05-23 06:48] VITALS: BMI 23.7
[2018-05-23] MEDS: GABAPENTIN 300 MG CAP PO SCH ×3 (09:37→21:46)
[2018-05-23] MEDS: ATORVASTATIN 10 MG TAB PO SCH (09:37)
[2018-05-23] MEDS: FINASTERIDE 5 MG TAB PO SCH (09:37)
[2018-05-23] MEDS: ENOXAPARIN 30 MG/0.3 ML SQ SCH (16:35)
--- NOTE | 2018-05-23 19:53 | P.PN ---
Subjective Date of Service: 05/23/18 Primary Care Provider: Dr. Geller Chief Complaint: Nausea, Vomitting, diarrhea Subjective: Improving Pt with CKD , admitted for abd pain and diarrhea Cr base ~1.5, in ER was 2.3 now at baseline on IVF Physical Examination - Vital Signs Temperature: 98.2 F Blood Pressure: 105/68 Pulse: 86 Respirations: 18 Pulse Ox (%): 98 - Physical Exam General: Oriented x3 HEENT: Atraumatic Neck: Supple, Without JVD or thyroid abnormality Respiratory: Clear to auscultation bilaterally Cardiovascular: No edema, Regular rate/rhythm, Normal S1 S2 Gastrointestinal: Normal bowel sounds, Soft and benign Assessment And Plan - Current Problems (Diagnosis) (1) Acute kidney injury superimposed on chronic kidney disease Current Visit: Yes Status: Acute (2) CKD (chronic kidney disease) stage 3, GFR 30-59 ml/min Current Visit: Yes Status: Chronic - Plan Txrln-hc-uskieke kidney on CKD CKD likely due to HTN baseline Cr ~1.5, non-proteinuric in ER Cr 2.3 and back to baseline on IVF will order renal US History of benign prostatic hypertrophy. The patient is asymptomatic. C.diff colitis improved now HX of CAD and CHD compensated now Physician Review: Patient Assessed, Agree with Above Assessment and Plan
--- NOTE | 2018-05-24 00:01 | PN ---
The patient claims that he still has 2-3 stools a day, semisolid. He still has abdominal distention. However, he is feeling better. He is afebrile. In view of his response, the patient will be pooja nued on vancomycin. . SANDIE/YUNG Voice ID: [id number] Report ID: [id number]
[2018-05-24] MEDS: NA CHLORIDE 0.9% 1,000 ML IV SCH ×2 (05:04→23:13)
[2018-05-24] MEDS: VANCOMYCIN ORAL SOLN 250 MG/5 ML OSYR PO SCH ×4 (05:05→23:13)
[2018-05-24] MEDS: FINASTERIDE 5 MG TAB PO SCH (08:18)
[2018-05-24] MEDS: GABAPENTIN 300 MG CAP PO SCH ×3 (08:18→21:18)
[2018-05-24] MEDS: ATORVASTATIN 10 MG TAB PO SCH (08:18)
--- NOTE | 2018-05-24 10:26 | RAD REPORT ---
EXAM DESCRIPTION: US - Renal Ultrasound-Complete - 05/24/2018 10:21 am CLINICAL HISTORY: Chronic kidney disease COMPARISON: None. FINDINGS: The right kidney measures 10.9 x 4.4 x 4.8 cm. The left kidney measures 10.9 x 4.9 x 4.6 cm. Renal cortical thickness and echogenicity are normal. No hydronephrosis or suspicious renal mass. No bladder wall thickening or mass. No intraluminal stone or mass. IMPRESSION: No hydronephrosis or suspicious renal mass. No other significant findings.
--- NOTE | 2018-05-24 11:38 | P.PN ---
Subjective Date of Service: 05/24/18 Primary Care Provider: Dr. Geller Chief Complaint: Nausea, Vomitting, diarrhea Pt with CKD , admitted for abd pain and diarrhea Cr base ~1.5, in ER was 2.3 now at baseline on IVF monitor wt F/U renal US cont to have diarrhea afib rate today >100, asymptomatic Physical Examination - Vital Signs Temperature: 98.3 F Blood Pressure: 110/69 Pulse: 110 Respirations: 18 Pulse Ox (%): 96 - Physical Exam General: Oriented x3 Neck: Supple, Without JVD or thyroid abnormality Respiratory: Clear to auscultation bilaterally Cardiovascular: No edema, Regular rate/rhythm, Normal S1 S2, No murmurs, Other ( tachycardia ) Gastrointestinal: Normal bowel sounds Assessment And Plan - Current Problems (Diagnosis) (1) Acute kidney injury superimposed on chronic kidney disease Current Visit: Yes Status: Acute (2) CKD (chronic kidney disease) stage 3, GFR 30-59 ml/min Current Visit: Yes Status: Chronic - Plan Ecbyx-fa-gklvjmf kidney on CKD CKD likely due to HTN baseline Cr ~1.5, non-proteinuric in ER Cr 2.3 and back to baseline on IVF will order renal US History of benign prostatic hypertrophy. The patient is asymptomatic. C.diff colitis improved now HX of CAD and CHD compensated now Physician Review: Patient Assessed, Agree with Above Assessment and Plan
[2018-05-24] MEDS: ENOXAPARIN 30 MG/0.3 ML SQ SCH (17:14)
--- NOTE | 2018-05-25 02:38 | PN ---
The patient's abdomen is nontender. His white count is normal. His BUN and creatinine are 48 and 1. 49. The ultrasound of the kidneys ordered by Nephrology Service showed no evidence of obstruction, m ass or other findings. The patient probably has chronic renal insufficiency. The patient is still g etting IV fluids. The patient was told about possible discharge as soon as Nephrology Service releas e him. SANDIE/YUNG Voice ID: [id number] Report ID: [id number]
[2018-05-25] MEDS: VANCOMYCIN ORAL SOLN 250 MG/5 ML OSYR PO SCH ×3 (05:12→17:37)
[2018-05-25] MEDS: NA CHLORIDE 0.9% 1,000 ML IV SCH ×2 (05:13→12:51)
[2018-05-25] MEDS: ATORVASTATIN 10 MG TAB PO SCH (09:41)
[2018-05-25] MEDS: GABAPENTIN 300 MG CAP PO SCH ×2 (09:41→14:31)
[2018-05-25] MEDS: FINASTERIDE 5 MG TAB PO SCH (09:41)
[2018-05-25 12:43] VITALS: O2SAT 98
--- NOTE | 2018-05-25 14:02 | P.PN ---
Subjective Date of Service: 05/25/18 Primary Care Provider: Dr. Geller Chief Complaint: Nausea, Vomitting, diarrhea Subjective: Improving Pt with CKD , admitted for abd pain and diarrhea Cr base ~1.5, in ER was 2.3 monitor wt diarrhea resolved LE edema , iV dc afib rate today >100, asymptomatic cleared for Discharge from nephrology point of view Physical Examination - Vital Signs Temperature: 98.6 F Blood Pressure: 142/95 Pulse: 125 Respirations: 16 Pulse Ox (%): 98 - Physical Exam General: In no apparent distress, Oriented x3 HEENT: Atraumatic Neck: Supple, Without JVD or thyroid abnormality Respiratory: Clear to auscultation bilaterally Cardiovascular: Regular rate/rhythm, Normal S1 S2, Edema Assessment And Plan - Current Problems (Diagnosis) (1) Acute kidney injury superimposed on chronic kidney disease Current Visit: Yes Status: Acute (2) CKD (chronic kidney disease) stage 3, GFR 30-59 ml/min Current Visit: Yes Status: Chronic - Plan Zkizz-jn-zvzdscv kidney on CKD CKD likely due to HTN baseline Cr ~1.5, non-proteinuric in ER Cr 2.3 and back to baseline on IVF renal US 10.89 cm, no hydro History of benign prostatic hypertrophy. The patient is asymptomatic. C.diff colitis diarrhea resolved HX of CAD and CHD compensated now Physician Review: Patient Assessed, Agree with Above Assessment and Plan
[2018-05-25] MEDS: ENOXAPARIN 30 MG/0.3 ML SQ SCH (17:00)
[2018-05-25 17:49] VITALS: BP 111/84; TEMP 98.8
== END 2018-05-25 18:15 | disposition home or self-care (01) | DRG 371 ==
LOC: ER 08:27 → 2ND 11:36
PROVIDERS: ADMIT Family Medicine; ATTEND Internal Medicine
DX: A04.72 Enterocolitis due to Clostridium difficile, not specified as recurrent (principal); J69.0 Pneumonitis due to inhalation of food and vomit; I13.0 Hypertensive heart and chronic kidney disease with heart failure and stage 1 through stage 4 chronic kidney disease, or unspecified chronic kidney disease; I50.22 Chronic systolic (congestive) heart failure; E87.1 Hypo-osmolality and hyponatremia; N17.9 Acute kidney failure, unspecified; N18.3 Chronic kidney disease, stage 3 (moderate); I25.10 Atherosclerotic heart disease of native coronary artery without angina pectoris; Z95.1 Presence of aortocoronary bypass graft; N40.0 Benign prostatic hyperplasia without lower urinary tract symptoms; E87.6 Hypokalemia; I25.2 Old myocardial infarction
CPT/HCPCS: 36415; 74176; 74230; 76770; 80048; 80053; 80076; 81003; 81015; 83605; 83690; 83735; 84100; 84132; 84145; 85025; 87040; 87045; 87046; 87493; 89055; 92526; 92610; 92611; 93005; 94760; 99285; G0008; J0696; J0744; J1650; J2405; J7030; Q2035

== ENCOUNTER 2018-07-10 15:47 | Observation (INO) | payer OTHER ==
[2018-07-10] MEDS ORDERED: NA CHLORIDE 0.9% 1,000 ML ONE (16:55)
[2018-07-10] MEDS ORDERED: FAMOTIDINE 20 MG/2 ML VIAL IV ONE (16:55)
[2018-07-10 16:58] LABS: Protime INR 1.19
[2018-07-10 17:04] LABS: Albumin 2.9 g/dL (3.4-5.0); Bilirubin Direct 0.4 mg/dL (0-0.2); Bilirubin Total 1.3 mg/dL (0.2-1.0); Magnesium 2.1 mg/dL (1.8-2.4); Potassium 3.4 mmol/L (3.5-5.1); Protein, Total 7.2 g/dL (6.4-8.2); Troponin (Emerg Dept Use Only) 0.02 ng/mL (0.0-0.045)
[2018-07-10 17:09] LABS: Absolute Lymphocytes (CBC) 0.5 K/uL (0.7-4.9); Absolute Monocytes 0.3 K/uL (0.1-1.3); Absolute Neutrophil 5.5 K/uL (1.8-8.0); Basophils % 0.2 % (0-1.3); Eosinophils % 1.5 % (0-4.4); Hematocrit 35.1 % (39.6-49.0); Lymphocytes % 8.2 % (15.3-44.8); Monocytes % 4.8 % (3.3-12.3); RBC Red Blood Cell Count 4.08 M/uL (4.33-5.43)
--- NOTE | 2018-07-10 17:23 | RAD REPORT ---
EXAM DESCRIPTION: Brian Single View07/10/2018 5:09 pm CLINICAL HISTORY: cough COMPARISON: June 2017 FINDINGS: The lungs appear clear of acute infiltrate. The heart is mildly enlarged. Postsurgical changes involve the chest. IMPRESSION: No acute abnormalities displayed
[2018-07-10] MEDS ORDERED: ONDANSETRON 4 MG/2 ML VIAL IV PRN (17:53)
[2018-07-10] MEDS ORDERED: IPRATROPIUM BROM 0.5MG/2.5ML NEB PRN (17:53)
[2018-07-10] MEDS ORDERED: ACETAMINOPHEN 500 MG TAB PO PRN (17:53)
[2018-07-10] MEDS ORDERED: ALBUTEROL 2.5 MG/3 ML NEB SOL NEB PRN (17:53)
--- NOTE | 2018-07-10 17:59 | EDPHYS ---
Physician Documentation [facility] Name: Yonny Gamez Age: 77 yrs Sex: Male : 1940 Arrival Date: 07/10/2018 Time: 15:51 Bed 2 Private MD: ED Physician Víctor Schwartz HPI: 07/10 16:19 This 77 yrs old Male presents to ER via EMS with complaints of Dizziness, low mo blood pressure. 16:19 The patient presents with dizziness, feeling faint, generalized weakness. Onset: The mo symptoms/episode began/occurred just prior to arrival, today. Context: occurred at home. Modifying factors: The symptoms are alleviated by lying down, the symptoms are aggravated by standing up. Associated signs and symptoms: Pertinent positives: near-syncope. Severity of symptoms: At their worst the symptoms were mild moderate in the emergency department the symptoms have improved mildly. Patient's baseline: Neuro: alert and fully oriented. The patient has not experienced similar symptoms in the past. Historical: - Allergies: 15:55 No Known Allergies; ss - Home Meds: 16:13 acetaminophen 650 mg Oral TbER as needed [Active]; acetaminophen-codeine 300-30 mg Oral sv tab 1 tab every 6 hours [Active]; alprazolam 0.25 mg Oral tab 1 tab [Active]; aspirin 81 mg Oral TbEC 1 tab once daily [Active]; atorvastatin 10 mg Oral tab 1 tab once daily [Active]; benazepril 40 mg Oral tab 1 tab once daily [Active]; bumetanide 2 mg Oral tab 1.5 tab 2 times per day [Active]; carvedilol 12.5 mg Oral tab 1 tab 2 times per day [Active]; Entresto 24-26 mg Oral tab [Active]; finasteride 5 mg Oral tab 1 tab once daily [Active]; furosemide 40 mg Oral tab 1 tab once daily [Active]; gabapentin 100 mg Oral cap 1 caps 3 times per day [Active]; nitroglycerin 0.4 mg SL subl 1 tab every 5 minutes [Active]; sodium chloride 1 gram Oral tab [Active]; spironolactone 25 mg Oral tab 1 tab once daily [Active]; tamsulosin 0.4 mg Oral cp24 1 cap once daily [Active]; - PMHx: 15:55 CAD; CHF; enlarged prostate; Hernia; Hypertension; ss - PSHx: 15:55 prostate surgery; CABG; left hip; Hernia repair; ss - Immunization history:: Adult Immunizations up to date. - Social history:: Smoking status: Patient/guardian denies using tobacco. - Ebola Screening: : Patient denies exposure to infectious person Patient denies travel to an Ebola-affected area in the 21 days before illness onset. - Family history:: not pertinent. ROS: 16:19 Constitutional: Negative for fever, chills, and weight loss, Eyes: Negative for injury, mo pain, redness, and discharge, ENT: Negative for injury, pain, and discharge, Neck: Negative for injury, pain, and swelling, Cardiovascular: Negative for chest pain, palpitations, and edema, Respiratory: Negative for shortness of breath, cough, wheezing, and pleuritic chest pain, Abdomen/GI: Negative for abdominal pain, nausea, vomiting, diarrhea, and constipation, Back: Negative for injury and pain, : Negative for injury, bleeding, discharge, and swelling, MS/Extremity: Negative for injury and deformity, Skin: Negative for injury, rash, and discoloration, Psych: Negative for depression, anxiety, suicide ideation, homicidal ideation, and hallucinations, Allergy/Immunology: Negative for hives, rash, and allergies, Endocrine: Negative for neck swelling, polydipsia, polyuria, polyphagia, and marked weight changes, Hematologic/Lymphatic: Negative for swollen nodes, abnormal bleeding, and unusual bruising. 16:19 Neuro: Positive for near syncope, weakness. Exam: 16:19 Constitutional: This is a well developed, well nourished patient who is awake, alert, mo and in no acute distress. Head/Face: Normocephalic, atraumatic. Eyes: Pupils equal round and reactive to light, extra-ocular motions intact. Lids and lashes normal. Conjunctiva and sclera are non-icteric and not injected. Cornea within normal limits. Periorbital areas with no swelling, redness, or edema. Neck: Trachea midline, no thyromegaly or masses palpated, and no cervical lymphadenopathy. Supple, full range of motion without nuchal rigidity, or vertebral point tenderness. No Meningismus. Chest/axilla: Normal chest wall appearance and motion. Nontender with no deformity. No lesions are appreciated. Cardiovascular: Regular rate and rhythm with a normal S1 and S2. No gallops, murmurs, or rubs. Normal PMI, no JVD. No pulse deficits. Respiratory: Lungs have equal breath sounds bilaterally, clear to auscultation and percussion. No rales, rhonchi or wheezes noted. No increased work of breathing, no retractions or nasal flaring. Abdomen/GI: Soft, non-tender, with normal bowel sounds. No distension or tympany. No guarding or rebound. No evidence of tenderness throughout. Back: No spinal tenderness. No costovertebral tenderness. Full range of motion. Skin: Warm, dry with normal turgor. Normal color with no rashes, no lesions, and no evidence of cellulitis. MS/ Extremity: Pulses equal, no cyanosis. Neurovascular intact. Full, normal range of motion. Neuro: Awake and alert, GCS 15, oriented to person, place, time, and situation. Cranial nerves II-XII grossly intact. Motor strength 5/5 in all extremities. Sensory grossly intact. Cerebellar exam normal. Normal gait. Psych: Awake, alert, with orientation to person, place and time. Behavior, mood, and affect are within normal limits. 16:19 ENT: TM's: no acute changes, Nose: no acute changes, Mouth: Oral mucosa: dry, Posterior pharynx: no acute changes, Breath odor: is normal. Vital Signs: 15:55 BP 103 / 51; Pulse 82; Resp 17; Temp 97.4(TE); Weight 61.23 kg; Height 5 ft. 5 in. ss (165.10 cm); Pain 0/10; 16:14 BP 92 / 52; Pulse 83; Resp 17; Pulse Ox 99% on R/A; sg 16:59 BP 89 / 56; Pulse 92; Resp 17; Pulse Ox 98% on R/A; Pain 0/10; sg 17:30 BP 108 / 62; Pulse 82; Resp 16; Pulse Ox 97% ; sv 18:00 BP 101 / 70; Pulse 86; Resp 17; Pulse Ox 96% ; sv 20:00 BP 103 / 64; Pulse 93; Resp 14 S; Pulse Ox 98% on R/A; bb 15:55 Body Mass Index 22.46 (61.23 kg, 165.10 cm) MDM: 16:00 Patient medically screened. [facility] 16:21 Data reviewed: vital signs, nurses notes, lab test result(s), EKG, radiologic studies, mo plain films. 07/10 16:17 Order name: Basic Metabolic Panel; Complete Time: 17:46 [facility] 07/10 16:17 Order name: CBC with Diff [facility] 07/10 16:17 Order name: LFT's; Complete Time: 17:46 [facility] 07/10 16:17 Order name: Magnesium; Complete Time: 17:46 [facility] 07/10 16:17 Order name: NT PRO-BNP; Complete Time: 17:46 [facility] 07/10 16:17 Order name: PT-INR; Complete Time: 17:46 [facility] 07/10 16:17 Order name: Troponin (emerg Dept Use Only); Complete Time: 17:46 [facility] 07/10 16:17 Order name: Lipase; Complete Time: 17:46 [facility] 07/10 16:17 Order name: Urine Culture [facility] 07/10 16:17 Order name: Blood Culture Adult (2) [facility] 07/10 16:17 Order name: Procalcitonin; Complete Time: 17:46 [facility] 07/10 16:17 Order name: Lactate; Complete Time: 17:46 [facility] 07/10 17:44 Order name: CBC Smear Scan [facility] 07/10 17:56 Order name: Basic Metabolic Panel [facility] 07/10 16:17 Order name: XRAY Chest (1 view); Complete Time: 17:46 [facility] 07/10 17:56 Order name: Basic Metabolic Panel [facility] 07/10 17:56 Order name: CBC with Automated Diff [facility] 07/10 17:56 Order name: CBC with Automated Diff [facility] 07/10 17:56 Order name: NT PRO-BNP [facility] 07/10 17:56 Order name: NT PRO-BNP [facility] 07/10 17:56 Order name: Troponin I [facility] 07/10 17:56 Order name: Troponin I [facility] 07/10 17:56 Order name: Troponin I [facility] 07/10 17:56 Order name: Chest Single View [facility] 07/10 17:57 Order name: Chest Single View [facility] 07/10 16:17 Order name: EKG; Complete Time: 16:18 [facility] 07/10 16:17 Order name: Cardiac monitoring; Complete Time: 17:02 [facility] 07/10 16:17 Order name: EKG - Nurse/Tech; Complete Time: 17:02 [facility] 07/10 16:17 Order name: IV Saline Lock; Complete Time: 17:02 [facility] 07/10 16:17 Order name: Labs collected and sent; Complete Time: 17:02 [facility] 07/10 16:17 Order name: O2 Per Protocol; Complete Time: 17:02 [facility] 07/10 16:17 Order name: O2 Sat Monitoring; Complete Time: 17:03 [facility] 07/10 16:17 Order name: Urine Dipstick-Ancillary (obtain specimen); Complete Time: 19:13 [facility] 07/10 17:55 Order name: CONS Physician Consult [facility] 07/10 17:56 Order name: Low Sodium [facility] 07/10 17:56 Order name: EKG Electrocardiogram [facility] 07/10 17:56 Order name: EKG Electrocardiogram [facility] Administered Medications: 16:19 CANCELLED (Duplicate Order): NS 0.9% 1000 ml IV at 1 bolus Per protocol; 1000 mL bolus [facility] 16:50 Drug: Pepcid 20 mg Route: IVP; Site: right forearm; sg 17:20 Follow up: Response: No adverse reaction 16:50 Drug: NS 0.9% 500 ml Route: IV; Rate: bolus; Site: right forearm; sg 17:20 Follow up: IV Status: Completed infusion sg 17:20 Drug: NS 0.9% 1000 ml Route: IV; Rate: 75 ml/hr; Site: right forearm; sg 20:48 Follow up: IV Status: Infusion continued upon admission; IV Intake: 225ml aa1 18:50 Drug: Potassium Effervescent Tablet 25 mEq Route: PO; sg 19:40 Follow up: Response: No adverse reaction aa1 Disposition: 07/10/18 17:58 Hospitalization ordered by Wayne Geller for Observation. Preliminary diagnosis are Weakness, Dizziness and giddiness, Volume depletion, Hypotension, Unspecified combined systolic (congestive) and diastolic (congestive) heart failure. - Bed requested for Telemetry/MedSurg (observation). - Status is Observation. aa1 - Condition is Fair. - Problem is new. - Symptoms have improved. UTI on Admission? No Signatures: Dispatcher [employer] [facility] Zeenat Smith RN RN sv Woody, Diana, RN RN dw Gay, Steven, RN RN sg Kern, Alissa, RN RN aa1 Efren, Víctor, MD MD mo Smirch, Susie, RN RN ss Corrections: (The following items were deleted from the chart) 16:19 16:17 NS 0.9% 1000 ml IV at 1 bolus Per protocol; 1000 mL bolus ordered. formerly [facility] 18:35 17:58 Hospitalization Ordered by Wayne Geller MD for Observation. Preliminary diagnosis dw is Weakness; Dizziness and giddiness; Volume depletion; Hypotension; Unspecified combined systolic (congestive) and diastolic (congestive) heart failure. Bed requested for Telemetry/MedSurg (observation). Status is Observation. Condition is Fair. Problem is new. Symptoms have improved. UTI on Admission? No. mo 18:45 18:35 07/10/2018 17:58 Hospitalization Ordered by Wayne Geller MD for Observation. dw Preliminary diagnosis is Weakness; Dizziness and giddiness; Volume depletion; Hypotension; Unspecified combined systolic (congestive) and diastolic (congestive) heart failure. Bed requested for Telemetry/MedSurg (observation). Status is Observation. Condition is Fair. Problem is new. Symptoms have improved. UTI on Admission? No. dw 20:33 18:45 07/10/2018 17:58 Hospitalization Ordered by Wayne Geller MD for Observation. aa1 Preliminary diagnosis is Weakness; Dizziness and giddiness; Volume depletion; Hypotension; Unspecified combined systolic (congestive) and diastolic (congestive) heart failure. Bed requested for Telemetry/MedSurg (observation). Status is Observation. Condition is Fair. Problem is new. Symptoms have improved. UTI on Admission? No. dw
--- NOTE | 2018-07-10 17:59 | ER ---
Nurse's Notes [facility] Name: Yonny Gamez Age: 77 yrs Sex: Male : 1940 Arrival Date: 07/10/2018 Time: 15:51 Bed 2 Private MD: Diagnosis: Weakness;Dizziness and giddiness;Volume depletion;Hypotension;Unspecified combined systolic (congestive) and diastolic (congestive) heart failure Presentation: 07/10 15:51 Presenting complaint: Patient states: dizziness and fatigue that began this morning and ss has been getting progressively worse. EMS reports that patient was hypotensive en route to ED, 78/38. Pt denies pain and/or dark tarry stools. Transition of care: patient was not received from another setting of care. Onset of symptoms was July 10, 2018. Risk Assessment: Do you want to hurt yourself or someone else? Patient reports no desire to harm self or others. Initial Sepsis Screen: Does the patient meet any 2 criteria? Does the patient have a suspected source of infection? No. Patient's initial sepsis screen is negative. Care prior to arrival: Medication(s) given: NS 250 mL IV initiated. 20 GA, in the left antecubital area, Glucose check: 147. 15:51 Method Of Arrival: EMS: [facility] ss 15:51 Acuity: LORA 2 ss Historical: - Allergies: 15:55 No Known Allergies; ss - Home Meds: 16:13 acetaminophen 650 mg Oral TbER as needed [Active]; acetaminophen-codeine 300-30 mg Oral sv tab 1 tab every 6 hours [Active]; alprazolam 0.25 mg Oral tab 1 tab [Active]; aspirin 81 mg Oral TbEC 1 tab once daily [Active]; atorvastatin 10 mg Oral tab 1 tab once daily [Active]; benazepril 40 mg Oral tab 1 tab once daily [Active]; bumetanide 2 mg Oral tab 1.5 tab 2 times per day [Active]; carvedilol 12.5 mg Oral tab 1 tab 2 times per day [Active]; Entresto 24-26 mg Oral tab [Active]; finasteride 5 mg Oral tab 1 tab once daily [Active]; furosemide 40 mg Oral tab 1 tab once daily [Active]; gabapentin 100 mg Oral cap 1 caps 3 times per day [Active]; nitroglycerin 0.4 mg SL subl 1 tab every 5 minutes [Active]; sodium chloride 1 gram Oral tab [Active]; spironolactone 25 mg Oral tab 1 tab once daily [Active]; tamsulosin 0.4 mg Oral cp24 1 cap once daily [Active]; - PMHx: 15:55 CAD; CHF; enlarged prostate; Hernia; Hypertension; ss - PSHx: 15:55 prostate surgery; CABG; left hip; Hernia repair; ss - Immunization history:: Adult Immunizations up to date. - Social history:: Smoking status: Patient/guardian denies using tobacco. - Ebola Screening: : Patient denies exposure to infectious person Patient denies travel to an Ebola-affected area in the 21 days before illness onset. - Family history:: not pertinent. Screenin:15 Abuse screen: Denies threats or abuse. Denies injuries from another. Nutritional sg screening: No deficits noted. Tuberculosis screening: No symptoms or risk factors identified. Never had TB. Fall Risk None identified. Assessment: 16:00 General: Appears in no apparent distress. well groomed, well developed, well nourished, sg Behavior is calm, cooperative, appropriate for age. Pain: Denies pain. Neuro: Level of Consciousness is awake, alert, obeys commands, Oriented to person, place, time, Budget Counselor are equal bilaterally Speech is normal, Facial symmetry appears normal. Cardiovascular: Heart tones S1 S2 present Capillary refill is sluggish in bilateral fingers Patient's skin is warm and dry. Chest pain is denied. Respiratory: Airway is patent Respiratory effort is even, unlabored, Respiratory pattern is regular, symmetrical. GI: No signs and/or symptoms were reported involving the gastrointestinal system. : No signs and/or symptoms were reported regarding the genitourinary system. EENT: No signs and/or symptoms were reported regarding the EENT system. Derm: Skin is pale, Skin temperature is cool. Musculoskeletal: Circulation, motion, and sensation intact. Range of motion: intact in all extremities, Reports pain in back "aching, chronic". 17:20 Reassessment: Patient appears in no apparent distress at this time. No changes from sv previously documented assessment. Patient and/or family updated on plan of care and expected duration. Pain level reassessed. Patient is alert, oriented x 3, equal unlabored respirations, skin warm/dry/pink. 18:50 Reassessment: Patient appears in no apparent distress at this time. No changes from sv previously documented assessment. Patient and/or family updated on plan of care and expected duration. Pain level reassessed. Patient is alert, oriented x 3, equal unlabored respirations, skin warm/dry/pink. 19:45 Reassessment: Patient appears in no apparent distress at this time. Patient and/or aa1 family updated on plan of care and expected duration. Pain level reassessed. Patient is alert, oriented x 3, equal unlabored respirations, skin warm/dry/pink. Awaiting receiving nurse's availability to take report for admission. 20:30 Reassessment: Patient appears in no apparent distress at this time. Patient is alert, aa1 oriented x 3, equal unlabored respirations, skin warm/dry/pink. Pt admitted to floor at this time. Family at bedside. Vital Signs: 15:55 BP 103 / 51; Pulse 82; Resp 17; Temp 97.4(TE); Weight 61.23 kg; Height 5 ft. 5 in. ss (165.10 cm); Pain 0/10; 16:14 BP 92 / 52; Pulse 83; Resp 17; Pulse Ox 99% on R/A; sg 16:59 BP 89 / 56; Pulse 92; Resp 17; Pulse Ox 98% on R/A; Pain 0/10; sg 17:30 BP 108 / 62; Pulse 82; Resp 16; Pulse Ox 97% ; sv 18:00 BP 101 / 70; Pulse 86; Resp 17; Pulse Ox 96% ; sv 20:00 BP 103 / 64; Pulse 93; Resp 14 S; Pulse Ox 98% on R/A; bb 15:55 Body Mass Index 22.46 (61.23 kg, 165.10 cm) ED Course: 15:51 Patient arrived in ED. ss 15:52 EKG done, by radio television technical director. reviewed by Víctor Schwartz MD. sm3 15:53 Triage completed. ss 15:55 Arm band placed on right wrist. ss 15:56 Maintain EMS IV. Dressing intact. Good blood return noted. Site clean \\T\\ dry. Gauge \\T\\ ss site: 20 gauge in L AC. 16:00 Víctor Schwartz MD is Attending Physician. mo 16:10 Patient has correct armband on for positive identification. Bed in low position. Call sg light in reach. Side rails up X2. auto radiator specialist on. Pulse ox on. NIBP on. Warm blanket given. Head of bed elevated. 16:27 Initial lab(s) drawn, by ED staff, sent to lab. First set of blood cultures drawn by ED sg staff. Inserted saline lock: 22 gauge in right forearm, using aseptic technique. Blood collected. 17:11 XRAY Chest (1 view) In Process Unspecified. EDMS 17:27 Fran Moy, RN is Primary Nurse. sg 17:48 Wayne eGller MD is Hospitalizing Provider. mo 18:40 Assisted with urinal. sg 19:00 No provider procedures requiring assistance completed. sg 20:13 Patient admitted, IV remains in place. bb Administered Medications: 16:19 CANCELLED (Duplicate Order): NS 0.9% 1000 ml IV at 1 bolus Per protocol; 1000 mL bolus mo 16:50 Drug: Pepcid 20 mg Route: IVP; Site: right forearm; sg 17:20 Follow up: Response: No adverse reaction sg 16:50 Drug: NS 0.9% 500 ml Route: IV; Rate: bolus; Site: right forearm; sg 17:20 Follow up: IV Status: Completed infusion sg 17:20 Drug: NS 0.9% 1000 ml Route: IV; Rate: 75 ml/hr; Site: right forearm; sg 20:48 Follow up: IV Status: Infusion continued upon admission; IV Intake: 225ml aa1 18:50 Drug: Potassium Effervescent Tablet 25 mEq Route: PO; sg 19:40 Follow up: Response: No adverse reaction aa1 Intake: 20:48 IV: 225ml; Total: 225ml. aa1 Outcome: 17:58 Decision to Hospitalize by Provider. mo 20:12 Admitted to Tele accompanied by tech, via stretcher, room 404, with chart, Report bb called to Grace SARAH 20:12 Condition: stable 20:12 Instructed on the need for admit. 20:33 Patient left the ED. aa1 Signatures: Dispatcher [employer] Zeenat Newman RN RN Fran Moy, RN RN Lara Caldera RN RN aa1 Víctor Schwartz MD MD cha Ballard, Brenda, RN RN bb Smirch, Shelby, RN RN Renea Villalobos sm3
[2018-07-10] MEDS ORDERED: NA CHLORIDE 0.9% 1,000 ML IV SCH ×2 (18:00)
[2018-07-10 18:17] LABS: Blood Morphology Comment NOT SEEN (NOT SEEN); Platelet Estimate ADEQ; Urine White Blood Cell Casts OK
[2018-07-10] MEDS ORDERED: POTASSIUM 25 MEQ EFFERV TAB ONE (18:47)
--- NOTE | 2018-07-10 19:04 | EKG ---
Test Date: 2018-07-10 Test Time: 15:47:03 Head Filter Press Tender: ANUJ MEASUREMENT RESULTS: Intervals: Rate: 84 NM: QRSD: 168 QT: 426 QTc: 503 [place]: P: NM: QRS: 156 T: 41 INTERPRETIVE STATEMENTS: Atrial fibrillation with a competing junctional pacemaker Right bundle branch block Septal infarct, age undetermined T wave abnormality, consider lateral ischemia or digitalis effect Abnormal ECG Compared to ECG 05/20/2018 08:55:45 T-wave abnormality now present Possible ischemia now present Ventricular premature complex(es) no longer present Myocardial infarct finding still present Electronically Signed On 07-10-18 19:02:46 WEIGHER AND CHARGER by Fletcher Moncada
[2018-07-10 21:07] VITALS: BMI 21.4
[2018-07-11 04:41] LABS: Absolute Lymphocytes (CBC) 0.7 K/uL (0.7-4.9); Absolute Monocytes 0.4 K/uL (0.1-1.3); Absolute Neutrophil 5.6 K/uL (1.8-8.0); Basophils % 0.3 % (0-1.3); Eosinophils % 2.1 % (0-4.4); Hematocrit 33.8 % (39.6-49.0); Lymphocytes % 9.7 % (15.3-44.8); MPV 8.7 fL (7.6-11.3); Monocytes % 6.4 % (3.3-12.3); RBC Red Blood Cell Count 3.92 M/uL (4.33-5.43)
[2018-07-11 05:07] LABS: Potassium 3.3 mmol/L (3.5-5.1)
--- NOTE | 2018-07-11 07:46 | EKG ---
Test Date: 2018-07-11 Test Time: 04:52:40 Liner Worker: RT Avalos MEASUREMENT RESULTS: Intervals: Rate: 106 [place]: QRSD: 168 QT: 366 QTc: 486 [place]: P: FL: QRS: 25 T: 162 INTERPRETIVE STATEMENTS: Atrial fibrillation with rapid ventricular response Right bundle branch block Septal infarct, age undetermined Lateral infarct, age undetermined Abnormal ECG Compared to ECG 07/10/2018 15:47:03 T-wave abnormality no longer present Possible ischemia no longer present Myocardial infarct finding still present Electronically Signed On 07-11-18 07:45:37 SPECIALTY MANUFACTURING SUPERVISOR by Ortega Flores
--- NOTE | 2018-07-11 08:53 | RAD REPORT ---
EXAM DESCRIPTION: Brian Single View07/11/2018 6:45 am CLINICAL HISTORY: Chest pain COMPARISON: July 10, 2018 FINDINGS: The lungs appear clear of acute infiltrate. The heart is mildly enlarged. Postsurgical changes involve the chest. IMPRESSION: No acute abnormalities displayed
--- NOTE | 2018-07-11 11:40 | EKG ---
Test Date: 2018-07-11 Test Time: 07:57:52 Cma Or Lpn: ERIKA MEASUREMENT RESULTS: Intervals: Rate: 92 [place]: QRSD: 172 QT: 426 QTc: 526 [place]: P: [place]: QRS: 144 T: 53 INTERPRETIVE STATEMENTS: Atrial fibrillation Right bundle branch block Septal infarct, age undetermined Abnormal ECG Compared to ECG 07/11/2018 04:52:40 No significant changes Electronically Signed On 07-11-18 11:39:31 FIELD REPORTER by Ortega Flores
[2018-07-11] MEDS ORDERED: HYDROCODONE/APAP 5/325 MG TAB PO PRN (11:49)
--- NOTE | 2018-07-11 15:26 | CON ---
History Of Present Illness: Mr. Gamez is a gentleman, who has end-stage heart disease. Our last c ardiac cath determined that he had inoperable CAD. He has had bypass surgery in the past and chronic AFib and came to the hospital with his , insisted he was sitting in a chair reclining and he radha d her he felt dizzy. The dizziness lasted about a minute, did not result in syncope or fall. He was sitting the whole time. He came to the hospital and since being in the hospital, has had no abnorma lities in his rhythm that would explain syncope, has not had anything really that would explain dizzi ness. He has not had syncope of course. He is placed in the hospital where he is in AFib. Medications: His home medications are Tylenol with Codeine, alprazolam, aspirin, Lipitor 10, benazep ril 40, bumetanide, Coreg, Entresto, finasteride, furosemide, gabapentin, nitroglycerin, spironolacto ne, and Flomax. He has a history of depressed ejection fraction as well. Physical Examination: Vital Signs: 5 feet 6 inches, 132 pounds. He has lost a lot of weight recently. Lungs: Clear. Heart: Irregularly irregular. During my exam, the heart rate was in the 80s. Extremities: No edema. Distal pulses not palpable. Impression: The patient probably does not need to be in the hospital. His N-terminal proBNP is impr oving since he has been here, and I think, he has maximum treatment for his heart failure and that is about all we can do for Mr. Gamez. I do not see any need for further hospitalization. ZION/YUNG Voice ID: [id number] Report ID: [id number]
--- NOTE | 2018-07-11 18:46 | RAD REPORT ---
EXAM DESCRIPTION: US - Renal Ultrasound-Complete - 07/11/2018 6:32 pm CLINICAL HISTORY: DREW Flank pain COMPARISON: Renal Ultrasound-Complete dated 05/24/2018 FINDINGS: Both kidneys are normal in size, shape and echotexture. The right kidney measures 10.5 x 4.8 x 4.6 cm. No hydronephrosis, focal mass or perinephric fluid. The left kidney measures 11.0 x 5.1 x 4.9 cm. No hydronephrosis, focal mass or perinephric fluid. The urinary bladder is incompletely distended without gross abnormality seen. IMPRESSION: Unremarkable renal sonogram.
[2018-07-11] MEDS ORDERED: ATORVASTATIN 10 MG TAB PO SCH (21:00)
[2018-07-11] MEDS: CARVEDILOL 12.5 MG TAB PO SCH (22:41)
[2018-07-11 23:16] LABS: Urine Appearance CLEAR; Urine Bilirubin NEGATIVE (NEG); Urine Blood NEGATIVE (NEG); Urine Color YELLOW; Urine Glucose NEGATIVE (NEG); Urine Protein NEGATIVE (NEG); Urine Urobilinogen 0.2 mg/dL (0.2-1.0)
[2018-07-11 23:23] LABS: Urine Protein/Creatinine Ratio 0.18 ratio (<0.15)
[2018-07-11 23:26] LABS: Urine Microscopic Reflex NO UMIC
--- NOTE | 2018-07-12 04:38 | HP ---
Date of Admission: 07/10/2018 Chief Complaint: Low blood pressure, weakness. History Of Present Illness: A 77-year-old male who has multiple medical problems including congestiv e heart failure, chronic renal insufficiency, was brought to the emergency room because of weakness. He was found to be hypotensive. The patient was given IV fluids. The patient was advised observati on status; however, he has been admitted. The patient denied any history of chest pain or shortness of breath. Past Medical History: As mentioned earlier, the patient has multiple medical problems that includes his chronic renal insufficiency, congestive heart failure, BPH. Past Surgical History: Positive for coronary bypass surgery, hernia repair, left hip surgery, and pr ostate surgery. Home Medicines: Please refer to the chart. Review of Systems: The patient denied any fever, chills, or rigors. Physical Examination: General: Revealed a 77-year-old male. At the time of exam, the patient was alert. Vital Signs: Blood pressure 90 systolic and in the ambulance, a blood pressure of 78/38 was recorded . HEENT: Otherwise negative. Neck: Supple. JVD negative. Chest: Clear. Heart: Irregularity noted. Abdomen: Soft. Extremities: No edema. Laboratory: White count at admission was normal 6.4. Chem profile; BUN elevated to 59, creatinine 1 .6, potassium 3.4. BNP 11,272. Procalcitonin 0.2. Assessment: 1.Hypotension, probably related to diuresis, poor oral intake, and medications. 2.Chronic renal failure. 3.Congestive heart failure, compensated. Plan: The patient received IV fluids. His blood pressure is better. His creatinine and BUN are sli ghtly better today compared to at admission. Consultation with Cardiology and Nephrology done. The patient is not started on diuretics because of the hypotension. The doses will be decided at the gavin e of discharge. SANDIE/YUNG Voice ID: [id number]
[2018-07-12] MEDS: CARVEDILOL 12.5 MG TAB PO SCH (09:00)
[2018-07-12] MEDS ORDERED: SPIRONOLACTONE 25 MG TABLET PO SCH (09:00)
[2018-07-12 10:45] VITALS: O2SAT 97
[2018-07-12] MEDS ORDERED: POTASSIUM 25 MEQ EFFERV TAB PO ONE (11:47)
[2018-07-12] MEDS ORDERED: NA CHLORIDE 0.9% 1,000 ML IV SCH (12:00)
[2018-07-12 12:42] VITALS: BP 101/53; TEMP 98.5
[2018-07-12] MEDS ORDERED: CARVEDILOL 3.125 MG TAB PO SCH (18:00)
--- NOTE | 2018-07-13 02:13 | CON ---
Date of Consultation: 07/12/2018 Chief Complaint: Chronic kidney disease stage 3, congestive heart failure, cardiorenal syndrome, gen eralized weakness. History Of Present Illness: The patient came to the emergency room because of generalized weakness. He was found to have hypotension and received IV fluids. The diuretics were stopped. The patient w as found to have hypotension and carvedilol dose was reduced. The patient has multiple medical problems. Previously, he was admitted to the hospital for congestiv e heart failure exacerbation. Review of Systems: General: Denies fever, chills. Eyes: Denies vision changes. Ears, Nose, Mouth, and Throat: Denies sore throat, earaches. Respiratory: Denies PND, orthopnea. Cardiovascular: Denies chest pain, palpitation. GI: Denies nausea, vomiting. : Denies dysuria, hematuria. Musculoskeletal: Denies muscle aches or joint swelling. Neurological: He was complaining of weakness and dizziness. Past Medical History: Congestive heart failure, cardiorenal syndrome, chronic kidney disease stage 3 , coronary artery disease, hyperlipidemia, BPH. Past Surgical History: Status post CABG, hernia repair, left hip surgery, prostate surgery. Social History: Denies tobacco, alcohol, or illicit drugs. Family History: No kidney disease in the family. Physical Examination: General: The patient is awake, alert, follows commands. Eyes: Anicteric sclerae. EOMI. Ears, Nose, Mouth, and Throat: Oral mucosa moist. No pallor. Neck: Supple. No JVD. No bruits. Abdomen: Soft, benign, nontender. Extremities: No clubbing, no cyanosis, no edema. Laboratory Data: White count 6.4, BUN 59, creatinine 1.6, potassium 3.4. BNP 11,272. Procalcitonin 0.2. Impression And Plan: 1.Hypotension secondary to volume depletion. The patient received IV normal saline for blood pressu re support and systolic blood pressure improved to 100. Carvedilol dose was reduced. 2.Diuretic currently on hold due to hypovolemia. 3.Congestive heart failure, compensated. 4.Cardiorenal syndrome, chronic. 5.Chronic kidney disease stage 3. Renal function is stabilizing. The patient was found to have pre renal azotemia. Creatinine level slightly improved from 1.64 to 1.59. The patient has chronic kidne y disease stage 3. Baseline creatinine level is 1.28. Continue to monitor electrolytes. The patien t received potassium replacement. The patient was found to have hypokalemia. Spironolactone and Bum ex on hold because of hypovolemia and acute kidney injury. EB/MODL Voice ID: [id number] Report ID: [id number]
== END 2018-07-12 13:28 | disposition home or self-care (01) ==
LOC: ER 15:47 → ERHOLD 17:50 → INTOOBSV 17:50 → 4TH 20:17
PROVIDERS: ADMIT Internal Medicine; ATTEND Internal Medicine
DX: I95.9 Hypotension, unspecified (principal); N18.3 Chronic kidney disease, stage 3 (moderate); E86.1 Hypovolemia; I13.0 Hypertensive heart and chronic kidney disease with heart failure and stage 1 through stage 4 chronic kidney disease, or unspecified chronic kidney disease; I50.9 Heart failure, unspecified; R79.89 Other specified abnormal findings of blood chemistry; I25.10 Atherosclerotic heart disease of native coronary artery without angina pectoris; Z95.1 Presence of aortocoronary bypass graft
CPT/HCPCS: 36415; 71045 ×2; 76770; 80048 ×2; 80076; 81003; 82570; 83605; 83690; 83735; 83880 ×2; 84145; 84156; 84484 ×3; 85025 ×2; 85610; 87040 ×2; 93005 ×3; 96361; 96374; 99285; G0378 ×2; J7030 ×2

== ENCOUNTER 2019-01-14 13:28 | Emergency (ER) | payer OTHER ==
[2019-01-14] MEDS ORDERED: TETANUS & DIPHTHERIA TOX,ADULT 0.5 ML VIAL ONE (15:13)
[2019-01-14] MEDS ORDERED: DERMABOND SKIN ADHESIVE TOP ONE (16:04)
--- NOTE | 2019-01-14 16:07 | RAD REPORT ---
EXAM DESCRIPTION: RAD - Hand Right 3 View - 01/14/2019 3:49 pm CLINICAL HISTORY: Right hand trauma, tear to the soft tissues dorsum of the hand COMPARISON: None. FINDINGS: No fracture is identified. There is no dislocation or periosteal reaction noted. Advanced degenerative change involves the trapezium first metacarpal articulation. Arterial tree calcificatio ns are present. There are 3 small calcifications over the dorsum of the wrist would be unrelated to t he acute event. In the area of soft tissue injury no soft tissue calcifications or foreign body seen. IMPRESSION: No fracture or acute bone findings seen. Advanced degenerative change at the trapezium f irst metacarpal articulation. No foreign body in the soft tissues.
--- NOTE | 2019-01-14 16:32 | ER ---
Nurse's Notes [facility] Name: Yonny Gamez Age: 78 yrs Sex: Male : 1940 Arrival Date: 01/14/2019 Time: 13:31 Bed 30 Private MD: Wayne Geller R Diagnosis: Laceration without foreign body of right hand Presentation: 01/14 13:51 Presenting complaint: Patient states: i fell down Monday night and had a good cut on iw my L hand, denies hitting head and LOC;. Transition of care: patient was not received from another setting of care. Complicating Factors: There are no complicating factors for this patient. Onset of symptoms was January 14, 2019. Risk Assessment: Do you want to hurt yourself or someone else? Patient reports no desire to harm self or others. Initial Sepsis Screen: Does the patient meet any 2 criteria? No. Patient's initial sepsis screen is negative. Does the patient have a suspected source of infection? No. Patient's initial sepsis screen is negative. Care prior to arrival: None. 13:51 Method Of Arrival: Ambulatory iw 13:51 Acuity: LORA 3 hj 13:56 Note BP in triage is low, pt is asymptomatic;. hj Historical: - Allergies: 13:52 No Known Allergies; iw - PMHx: 13:52 CAD; CHF; enlarged prostate; Hernia; Hypertension; iw - PSHx: 13:52 prostate surgery; CABG; left hip; Hernia repair; iw - Immunization history:: Adult Immunizations Last tetanus immunization: unknown. - Social history:: Smoking status: unknown. - Ebola Screening: : No symptoms or risks identified at this time. Screenin:26 Abuse screen: Denies threats or abuse. Denies injuries from another. Nutritional rv screening: No deficits noted. Tuberculosis screening: No symptoms or risk factors identified. Fall Risk None identified. Assessment: 14:25 General: Appears in no apparent distress. comfortable, Behavior is calm, cooperative. rv Pain: Complains of pain in right hand. Neuro: Level of Consciousness is awake, alert, obeys commands, Oriented to person, place, time, situation. Cardiovascular: Patient's skin is warm and dry. Respiratory: Airway is patent. GI: No signs and/or symptoms were reported involving the gastrointestinal system. : No signs and/or symptoms were reported regarding the genitourinary system. EENT: No signs and/or symptoms were reported regarding the EENT system. Derm: Skin is intact. Musculoskeletal: Swelling absent. Injury Description: Laceration sustained to right hand is clean, 2.6 to 7.5 cm long, not bleeding, was sustained 2 days ago. Vital Signs: 13:53 BP 80 / 49; Pulse 90; Resp 18; Temp 98.2(O); Pulse Ox 100% on R/A; Weight 63.5 kg; hj Height 5 ft. 6 in. (167.64 cm); Pain 3/10; 14:30 BP 88 / 55; Pulse 76; Resp 17; Pulse Ox 96% ; rv 15:05 BP 95 / 57; Pulse 87; Resp 15; Pulse Ox 97% on R/A; rv 16:00 BP 90 / 64; Pulse 76; Resp 16; Pulse Ox 98% ; rv 16:48 BP 90 / 65; Pulse 71; Resp 17; Temp 98; Pulse Ox 98% on R/A; rv 13:53 Body Mass Index 22.60 (63.50 kg, 167.64 cm) ED Course: 13:31 Patient arrived in ED. mr 13:32 Wayne Geller MD is Private Physician. mr 13:52 Triage completed. iw 13:52 Arm band placed on left wrist. iw 14:10 Albino Henriquez MD is Attending Physician. gs 14:13 Beka Paul RN is Primary Nurse. rv 14:14 Wound care: to laceration located on dorsum of right hand was cleaned with nicolette Cox irrigated with normal saline, Patient tolerated well. 14:27 Patient has correct armband on for positive identification. Bed in low position. Call rv light in reach. Side rails up X 1. Pulse ox on. NIBP on. 15:47 X-ray completed. Portable x-ray completed in exam room. Patient tolerated procedure mh1 well. 15:50 Hand Right 3 View XRAY In Process Unspecified. EDMS 16:49 Assist provider with laceration repair on right hand that was 2.5 cm. or less using rv Dermabond. Set up tray. Performed by Albino Henriquez MD Patient tolerated well. Patient did not have IV access during this emergency room visit. 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 Exp: rv 08/30/2020. Lot #: [id number]. } Route: IM; Site: left deltoid; 16:48 Follow up: Response: No adverse reaction rv Outcome: 16:31 Discharge ordered by . 16:49 Discharged to home via wheelchair, with family. rv 16:49 Condition: good 16:49 Discharge instructions given to patient. 16:49 Discharge instructions given to family, Instructed on discharge instructions, follow up and referral plans. wound care, Demonstrated understanding of instructions, follow-up care, wound care. 16:50 Patient left the ED. rv Signatures: Dispatcher [employer] EDNJ Miles Vilma Berry Sofiya 1 Brinda Liriano, RN TYREL Francisco Dubose RN Albino Guzman MD MD gs Vicente, Ronaldo RN TYREL Beka Rob jp3 Corrections: (The following items were deleted from the chart) 13:56 13:51 Acuity: LORA 4 iw 13:56 13:53 Pulse 90bpm; Resp 18bpm; Pulse Ox 100% RA; Temp 98.2F Oral; 63.5 kg; Height 5 ft. hj 6 in.; BMI: 22.6; Pain 3/10; iw
--- NOTE | 2019-01-14 16:33 | EDPHYS ---
Physician Documentation [facility] Name: Yonny Gamez Age: 78 yrs Sex: Male : 1940 Arrival Date: 01/14/2019 Time: 13:31 Bed 30 Private MD: Wayne Geller R ED Physician Albino Henriquez HPI: 01/14 17:00 This 78 yrs old Male presents to ER via Ambulatory with complaints of gs Laceration To Hand. 17:00 The patient has a laceration related to: falling caught self before falling. The gs laceration(s) is(are) located on the dorsum of right hand. Onset: The symptoms/episode began/occurred acutely. The patient has experienced similar episodes in the past, a few times. Historical: - Allergies: 13:52 No Known Allergies; iw - PMHx: 13:52 CAD; CHF; enlarged prostate; Hernia; Hypertension; iw - PSHx: 13:52 prostate surgery; CABG; left hip; Hernia repair; iw - Immunization history:: Adult Immunizations Last tetanus immunization: unknown. - Social history:: Smoking status: unknown. - Ebola Screening: : No symptoms or risks identified at this time. ROS: 17:00 All other systems are negative. gs Exam: 17:00 Head/Face: Normocephalic, atraumatic. gs 17:00 Eyes: Pupils equal round and reactive to light, extra-ocular motions intact. Lids and lashes normal. Conjunctiva and sclera are non-icteric and not injected. Cornea within normal limits. Periorbital areas with no swelling, redness, or edema. ENT: Nares patent. No nasal discharge, no septal abnormalities noted. Tympanic membranes are normal and external auditory canals are clear. Oropharynx with no redness, swelling, or masses, exudates, or evidence of obstruction, uvula midline. Mucous membranes moist. Neck: Trachea midline, no thyromegaly or masses palpated, and no cervical lymphadenopathy. Supple, full range of motion without nuchal rigidity, or vertebral point tenderness. No Meningismus. Chest/axilla: Normal chest wall appearance and motion. Nontender with no deformity. No lesions are appreciated. Cardiovascular: Regular rate and rhythm with a normal S1 and S2. No gallops, murmurs, or rubs. Normal PMI, no JVD. No pulse deficits. Respiratory: Lungs have equal breath sounds bilaterally, clear to auscultation and percussion. No rales, rhonchi or wheezes noted. No increased work of breathing, no retractions or nasal flaring. Abdomen/GI: Soft, non-tender, with normal bowel sounds. No distension or tympany. No guarding or rebound. No evidence of tenderness throughout. Back: No spinal tenderness. No costovertebral tenderness. Full range of motion. Neuro: Awake and alert, GCS 15, oriented to person, place, time, and situation. Cranial nerves II-XII grossly intact. Motor strength 5/5 in all extremities. Sensory grossly intact. Cerebellar exam normal. Normal gait. 17:00 Constitutional: The patient appears alert, awake. 17:00 Musculoskeletal/extremity: Extremities: noted in the dorsum of right hand: pain, tenderness, Circulation is intact in all extremities. Sensation intact. 17:00 Skin: injury, avulsion(s), A moderate sized Vital Signs: 13:53 BP 80 / 49; Pulse 90; Resp 18; Temp 98.2(O); Pulse Ox 100% on R/A; Weight 63.5 kg; hj Height 5 ft. 6 in. (167.64 cm); Pain 3/10; 14:30 BP 88 / 55; Pulse 76; Resp 17; Pulse Ox 96% ; rv 15:05 BP 95 / 57; Pulse 87; Resp 15; Pulse Ox 97% on R/A; rv 16:00 BP 90 / 64; Pulse 76; Resp 16; Pulse Ox 98% ; rv 16:48 BP 90 / 65; Pulse 71; Resp 17; Temp 98; Pulse Ox 98% on R/A; rv 13:53 Body Mass Index 22.60 (63.50 kg, 167.64 cm) hj Laceration: 17:00 Wound Repair of 4cm ( 1.6in ) subcutaneous laceration to dorsum of right hand. Distal gs neuro/vascular/tendon intact. Wound prep: Wound irrigation with saline. Skin closed using Dermabond. MDM: 15:07 Patient medically screened. gs 17:00 Data reviewed: vital signs, nurses notes. Data reviewed: radiologic studies. Response gs to treatment: the patient's symptoms have markedly improved after treatment. ED course: discussed with pt, and son my concern about bp low offered to evaluate both stated this is baseline did not want eval. will discharge after lac repair. 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 Exp: rv 08/30/2020. Lot #: [id number]. } Route: IM; Site: left deltoid; 16:48 Follow up: Response: No adverse reaction rv Disposition: 01/14/19 16:31 Discharged to Home. Impression: Laceration without foreign body of right hand. - Condition is Stable. - Discharge Instructions: Tissue Adhesive Wound Care, Laceration Care, Adult. - Medication Reconciliation Form, Thank You Letter, Antibiotic Education, Prescription Opioid Use form. - Follow up: Private Physician; When: 2 - 3 days; Reason: Re-evaluation by your physician. Signatures: Dispatcher [employer] EDBrinda Ruano RN RN Albino Henriquez MD MD Beka Paul RN RN rv Corrections: (The following items were deleted from the chart) 16:50 16:31 01/14/2019 16:31 Discharged to Home. Impression: Laceration without foreign body rv of right hand. Condition is Stable. Forms are Medication Reconciliation Form, Thank You Letter, Antibiotic Education, Prescription Opioid Use. Follow up: Private Physician; When: 2 - 3 days; Reason: Re-evaluation by your physician.
[2019-01-14 17:12] VITALS: O2SAT 98
[2019-01-14 17:14] VITALS: BP 90/65; TEMP 98
== END 2019-01-14 16:50 | disposition home or self-care (01) ==
LOC: ER 13:28
PROC: 0JQJ0ZZ Repair Right Hand Subcutaneous Tissue and Fascia, Open Approach (ICD-10-PCS; principal; 2019-01-14)
DX: S61.411A Laceration without foreign body of right hand, initial encounter (principal); W19.XXXA Unspecified fall, initial encounter; Y93.9 Activity, unspecified; Y92.9 Unspecified place or not applicable; Z23 Encounter for immunization; Z95.1 Presence of aortocoronary bypass graft; I10 Essential (primary) hypertension
CPT/HCPCS: 73130; 90471; 90714; 99284; 12002; G0168

== ENCOUNTER 2019-03-01 09:48 | Emergency (ER) | payer OTHER ==
--- NOTE | 2019-03-01 11:10 | ER ---
Nurse's Notes [facility] Name: Yonny Gamez Age: 78 yrs Sex: Male : 1940 Arrival Date: 03/01/2019 Time: 09:46 Bed 8 Private MD: Diagnosis: Abrasion of left hand;Abrasion of right hand Presentation: 03/01 09:47 Presenting complaint: EMS states: TRIP AND FALL AT HOME. Transition of care: patient bp was not received from another setting of care. Onset of symptoms is unknown. Risk Assessment: Do you want to hurt yourself or someone else? Patient reports no desire to harm self or others. Initial Sepsis Screen: Does the patient meet any 2 criteria? No. Patient's initial sepsis screen is negative. Does the patient have a suspected source of infection? No. Patient's initial sepsis screen is negative. Care prior to arrival: Bleeding of injury controlled. Injury dressed. 09:47 Method Of Arrival: EMS: [facility] bp 09:47 Acuity: LORA 3 bp Historical: - Allergies: 09:50 No Known Allergies; bp - Home Meds: 09:50 carvedilol 12.5 mg Oral tab 1 tab 2 times per day [Active]; Entresto 24-26 mg Oral tab bp [Active]; atorvastatin 10 mg Oral tab 1 tab once daily [Active]; spironolactone 25 mg Oral tab 1 tab once daily [Active]; bumetanide 2 mg Oral tab 1.5 tab 2 times per day [Active]; tamsulosin 0.4 mg Oral cp24 1 cap once daily [Active]; finasteride 5 mg Oral tab 1 tab once daily [Active]; gabapentin 100 mg Oral cap 1 caps 3 times per day [Active]; potassium chloride 20 mEq Oral TbER 1 tab once daily [Active]; acetaminophen-codeine 300-30 mg Oral tab 1 tab every 6 hours [Active]; - PMHx: 09:50 Hypertension; Hernia; enlarged prostate; CHF; CAD; bp - Immunization history:: Adult Immunizations up to date. - Social history:: Smoking status: Patient/guardian denies using tobacco. - Ebola Screening: : No symptoms or risks identified at this time. Screenin:07 Abuse screen: Denies threats or abuse. Denies injuries from another. Nutritional mg2 screening: No deficits noted. Tuberculosis screening: No symptoms or risk factors identified. Fall Risk Fall in past 12 months (25 points). Ambulatory Aid- Crutches/Cane/Walker (15 pts). Assessment: 11:06 General: Appears in no apparent distress. comfortable, Behavior is calm, cooperative. mg2 Pain: Complains of pain in left hand and both legs Pain does not radiate. Pain currently is 2 out of 10 on a pain scale. Quality of pain is described as aching, Pain began gradually, Is intermittent. Neuro: Level of Consciousness is awake, alert, obeys commands, Oriented to person, place, time, situation. Cardiovascular: Capillary refill < 3 seconds Patient's skin is warm and dry. Respiratory: Airway is patent Respiratory effort is even, unlabored, Respiratory pattern is regular, symmetrical. GI: No signs and/or symptoms were reported involving the gastrointestinal system. : No signs and/or symptoms were reported regarding the genitourinary system. EENT: No signs and/or symptoms were reported regarding the EENT system. Derm: Skin is healthy with good turgor, has skin tears on both legs and left hand Skin is pink, warm \T\ dry. normal. Musculoskeletal: Circulation, motion, and sensation intact. Capillary refill < 3 seconds. Injury Description: skin tear. Vital Signs: 09:50 BP 102 / 82; Pulse 73; Resp 16; Temp 97; Pulse Ox 95% ; Weight 63.5 kg; Height 5 ft. 4 bp in. (162.56 cm); 10:59 BP 97 / 70; Pulse 70; Resp 17; Pulse Ox 97% on R/A; mh5 09:50 Body Mass Index 24.03 (63.50 kg, 162.56 cm) bp ED Course: 09:46 Patient arrived in ED. bp 09:48 Triage completed. bp 09:48 Albino Henriquez MD is Attending Physician. gs 09:51 Arm band placed on right wrist. bp 10:29 Matt Bradley, TYREL is Primary Nurse. mg2 10:58 TOLERATED WALK WELL. mh5 10:58 Dressings: non-adherent dressing x 1 left hand. mh5 11:08 No provider procedures requiring assistance completed. Patient did not have IV access mg2 during this emergency room visit. Administered Medications: No medications were administered Outcome: 11:09 Discharge ordered by . gs 11:23 Discharged to home via wheelchair, with family. mg2 11:23 Condition: stable 11:23 Discharge instructions given to patient, family, Instructed on discharge instructions, mg2 follow up and referral plans. Demonstrated understanding of instructions, follow-up care, wound care. 11:24 Patient left the ED. iw Signatures: Brinda Liriano, RN RN iw Lupis Wall [facility] Albino Henriquez MD MD gs Peltier, Brian, RN RN Matt Winkler RN RN mg2
--- NOTE | 2019-03-01 11:10 | EDPHYS ---
Physician Documentation [facility] Name: Yonny Gamez Age: 78 yrs Sex: Male : 1940 Arrival Date: 03/01/2019 Time: 09:46 Bed 8 Private MD: ED Physician Albino Henriquez HPI: 03/01 14:02 This 78 yrs old Male presents to ER via EMS with complaints of Fall Injury. gs 14:02 Details of fall: The patient fell from an upright position, while walking. Onset: The gs symptoms/episode began/occurred acutely, just prior to arrival. Associated injuries: The patient sustained dorsal aspect of proximal phalanx of left index finger and dorsum of left hand, abrasion. Severity of symptoms: At their worst the symptoms were moderate, in the emergency department the symptoms are unchanged. The patient has experienced similar episodes in the past, a few times. Historical: - Allergies: 09:50 No Known Allergies; bp - Home Meds: 09:50 carvedilol 12.5 mg Oral tab 1 tab 2 times per day [Active]; Entresto 24-26 mg Oral tab bp [Active]; atorvastatin 10 mg Oral tab 1 tab once daily [Active]; spironolactone 25 mg Oral tab 1 tab once daily [Active]; bumetanide 2 mg Oral tab 1.5 tab 2 times per day [Active]; tamsulosin 0.4 mg Oral cp24 1 cap once daily [Active]; finasteride 5 mg Oral tab 1 tab once daily [Active]; gabapentin 100 mg Oral cap 1 caps 3 times per day [Active]; potassium chloride 20 mEq Oral TbER 1 tab once daily [Active]; acetaminophen-codeine 300-30 mg Oral tab 1 tab every 6 hours [Active]; - PMHx: 09:50 Hypertension; Hernia; enlarged prostate; CHF; CAD; bp - Immunization history:: Adult Immunizations up to date. - Social history:: Smoking status: Patient/guardian denies using tobacco. - Ebola Screening: : No symptoms or risks identified at this time. ROS: 14:02 All other systems are negative. gs Exam: 14:02 Head/Face: Normocephalic, atraumatic. Eyes: Pupils equal round and reactive to light, gs extra-ocular motions intact. Lids and lashes normal. Conjunctiva and sclera are non-icteric and not injected. Cornea within normal limits. Periorbital areas with no swelling, redness, or edema. ENT: Nares patent. No nasal discharge, no septal abnormalities noted. Tympanic membranes are normal and external auditory canals are clear. Oropharynx with no redness, swelling, or masses, exudates, or evidence of obstruction, uvula midline. Mucous membranes moist. Neck: Trachea midline, no thyromegaly or masses palpated, and no cervical lymphadenopathy. Supple, full range of motion without nuchal rigidity, or vertebral point tenderness. No Meningismus. Chest/axilla: Normal chest wall appearance and motion. Nontender with no deformity. No lesions are appreciated. Cardiovascular: Regular rate and rhythm with a normal S1 and S2. No gallops, murmurs, or rubs. Normal PMI, no JVD. No pulse deficits. Respiratory: Lungs have equal breath sounds bilaterally, clear to auscultation and percussion. No rales, rhonchi or wheezes noted. No increased work of breathing, no retractions or nasal flaring. Abdomen/GI: Soft, non-tender, with normal bowel sounds. No distension or tympany. No guarding or rebound. No evidence of tenderness throughout. Back: No spinal tenderness. No costovertebral tenderness. Full range of motion. Skin: Warm, dry with normal turgor. Normal color with no rashes, no lesions, and no evidence of cellulitis. Neuro: Awake and alert, GCS 15, oriented to person, place, time, and situation. Cranial nerves II-XII grossly intact. Motor strength 5/5 in all extremities. Sensory grossly intact. Cerebellar exam normal. Normal gait. 14:02 Constitutional: The patient appears alert, awake. 14:02 Musculoskeletal/extremity: Extremities: noted in the right leg and left leg: venous congestion legs and chronic wound, no deformity or bony tenderness, Perfusion: the patient is normally perfused throughout, Edema, 2+ to the left midcalf and right midcalf is noted. 14:02 Skin: injury, abrasion(s), very small abrasion noted, of the left hand. Vital Signs: 09:50 BP 102 / 82; Pulse 73; Resp 16; Temp 97; Pulse Ox 95% ; Weight 63.5 kg; Height 5 ft. 4 bp in. (162.56 cm); 10:59 BP 97 / 70; Pulse 70; Resp 17; Pulse Ox 97% on R/A; mh5 09:50 Body Mass Index 24.03 (63.50 kg, 162.56 cm) bp MDM: 09:59 Patient medically screened. 14:02 Differential diagnosis: abrasion, contusion. Data reviewed: vital signs, nurses notes. gs Response to treatment: the patient's symptoms have mildly improved after treatment, and as a result, I will discharge patient. 03/01 10:00 Order name: Wound Care; Complete Time: 10:29 gs Administered Medications: No medications were administered Disposition: 03/01/19 11:09 Discharged to Home. Impression: Abrasion of left hand, Abrasion of right hand. - Condition is Stable. - Discharge Instructions: Abrasion, [id number]. - Medication Reconciliation Form, Thank You Letter, Antibiotic Education, Prescription Opioid Use form. - Follow up: Private Physician; When: 2 - 3 days; Reason: Re-evaluation by your physician. Signatures: Brinda Liriano, RN RN Albino Henriquez MD MD Robi Méndez RN RN bp Corrections: (The following items were deleted from the chart) 11:24 11:09 03/01/2019 11:09 Discharged to Home. Impression: Abrasion of left hand; Abrasion iw of right hand. Condition is Stable. Forms are Medication Reconciliation Form, Thank You Letter, Antibiotic Education, Prescription Opioid Use. Follow up: Private Physician; When: 2 - 3 days; Reason: Re-evaluation by your physician. gs
[2019-03-01 11:31] VITALS: BP 97/70; TEMP 97; O2SAT 97
== END 2019-03-01 11:24 | disposition home or self-care (01) ==
LOC: ER 09:48
DX: S60.512A Abrasion of left hand, initial encounter (principal); S60.511A Abrasion of right hand, initial encounter; W19.XXXA Unspecified fall, initial encounter; Y93.01 Activity, walking, marching and hiking; Y92.9 Unspecified place or not applicable; I10 Essential (primary) hypertension; I50.9 Heart failure, unspecified; I25.10 Atherosclerotic heart disease of native coronary artery without angina pectoris
CPT/HCPCS: 99283

== ENCOUNTER 2019-03-04 16:28 | Inpatient (IN) | payer OTHER ==
[2019-03-04] MEDS ORDERED: PNEUMOCOCCAL VACCINE 0.5 ML IMVAC ONE (18:00)
[2019-03-04] MEDS ORDERED: INFLUENZA VACCINE (for 3y+) 0.5 ML DOSE IMVAC ONE (18:00)
[2019-03-04 18:02] LABS: Absolute Lymphocytes (CBC) 0.5 K/uL (0.7-4.9); Basophils % 0.6 % (0-1.3); Hematocrit 37.8 % (39.6-49.0); Lymphocytes % 8.7 % (15.3-44.8); RBC Red Blood Cell Count 4.43 M/uL (4.33-5.43)
[2019-03-04 18:24] LABS: Bilirubin Total 1.1 mg/dL (0.2-1.0); Potassium 4.4 mmol/L (3.5-5.1); Protein, Total 7.4 g/dL (6.4-8.2)
--- NOTE | 2019-03-04 19:16 | RAD REPORT ---
EXAM DESCRIPTION: RAD - Chest Pa And Lat (2 Views) - 03/04/2019 7:02 pm CLINICAL HISTORY: chf Chest pain. COMPARISON: Chest Single View dated 07/11/2018; Chest Single View dated 07/10/2018; Chest Pa And Lat ( 2 Views) dated 06/25/2017; Chest Single View dated 04/25/2017 FINDINGS: Mild interstitial pulmonary edema is seen with small to moderate bilateral pleural effusio ns. Moderate cardiomegaly with sternotomy wires present. No displaced fractures. IMPRESSION: Mild CHF versus volume overload pattern.
[2019-03-04] MEDS ORDERED: FUROSEMIDE 20 MG/ 2ML VIAL IV ONE (19:46)
[2019-03-04] MEDS: GABAPENTIN 300 MG CAP PO SCH (22:03)
[2019-03-04] MEDS: BUMETANIDE 1 MG TABLET PO SCH (22:03)
[2019-03-04] MEDS: HYDROCODONE/APAP 5/325 MG TAB PO SCH (22:04)
[2019-03-04] MEDS: ATORVASTATIN 10 MG TAB PO SCH (22:05)
[2019-03-04] MEDS: CARVEDILOL 6.25 MG TAB PO SCH (22:05)
[2019-03-04 22:43] LABS: Urine Appearance CLEAR; Urine Bilirubin NEGATIVE (NEG); Urine Blood NEGATIVE (NEG); Urine Color YELLOW; Urine Glucose NEGATIVE (NEG); Urine Protein NEGATIVE (NEG); Urine Urobilinogen 0.2 mg/dL (0.2-1.0); Urine pH 5.5 (5.0-7.0)
[2019-03-04 22:52] LABS: Urine Microscopic Reflex NO UMIC
[2019-03-05] MEDS ORDERED: DIPHENHYDRAMINE 25 MG TAB/CAP PO PRN (00:26)
[2019-03-05] MEDS: BISACODYL E.C. 5 MG TAB PO PRN (00:40)
[2019-03-05] MEDS: CARVEDILOL 6.25 MG TAB PO SCH ×2 (08:04→20:12)
[2019-03-05] MEDS: THIAMINE HCL 100 MG TABLET PO SCH (08:04)
[2019-03-05] MEDS: ASPIRIN 81 MG CHEWABLE TABLET PO SCH (08:04)
[2019-03-05] MEDS: GABAPENTIN 300 MG CAP PO SCH ×3 (08:04→20:12)
[2019-03-05] MEDS: FINASTERIDE 5 MG TAB PO SCH (08:04)
[2019-03-05] MEDS: POTASSIUM CL SA 10 MEQ TAB PO SCH (08:04)
[2019-03-05] MEDS: BUMETANIDE 1 MG TABLET PO SCH (08:04)
[2019-03-05] MEDS: HYDROCODONE/APAP 5/325 MG TAB PO SCH ×3 (08:05→20:11)
[2019-03-05] MEDS ORDERED: BISACODYL 10 MG RECTAL SUPP PR ONE (08:51)
[2019-03-05] MEDS: BUMETANIDE 1 MG/4 ML VIAL IV SCH ×2 (09:00→21:19)
[2019-03-05 09:56] LABS: CKMB Creatine Kinase MB 1.3 ng/mL (0.3-3.6); Thyroid Stimulating Hormone 2.88 uIU/mL (0.360-3.740)
[2019-03-05 10:54] LABS: Arterial Blood Carboxyhemoglob 2.1 % (0-1.5); Blood Gas Oxyhemoglobin 94.3 % (94-97); Blood O2 Saturation 96.8 % (92-98.5)
[2019-03-05] MEDS ORDERED: BUMETANIDE 1 MG/4 ML VIAL IV ONE (11:00)
[2019-03-05 11:07] LABS: Urine Protein/Creatinine Ratio 0.25 ratio (<0.15)
--- NOTE | 2019-03-05 11:23 | CON ---
Date of Consultation: 03/05/2019 Reason For Consultation: Anasarca, elevated BUN and creatinine. History Of Present Illness: This is a pleasant, unfortunate 78-year-old gentleman, well known to me from the office with significant past medical history of chronic kidney disease secondary to cardiore nal, hypertension, hyponatremia secondary to dilutional, hyperlipidemia, coronary artery disease comp licated with congestive heart failure with diastolic dysfunction, last echocardiogram was done back i 2016. At that time, his ejection fraction was 49%, left ventricular hypertrophy. The patient coup le of weeks ago came to the office. At that time, his creatinine was elevated. For that reason, I d ecreased his Bumex from 2 mg b.i.d. to 2 mg in the morning and 1 mg at night. Apparently, patient st arted feeling some shortness of breath, increase in his leg swelling. For that reason, he visited e ER, found to have a blister in the leg, treated conservatively, and discharged. The patient is sti ll continuing to feel weak. For that reason, reported to his primary care, Dr. Geller, and from there , he was directly admitted. Primary workup showed elevation in creatinine at 2, GFR 32, which is exa ctly the same as when he was seen in the office. Creatinine at that time 2.1, GFR of 31, but it is h igher than his baseline 1.7 and GFR of 38 back in November and December. Patient denied taking any nonster oidal, no IV contrast. Patient being compliant with his home medications. 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 2.Hypertension. 3.Hyperlipidemia. 4.Coronary artery disease complicated with congestive heart failure, diastolic dysfunction, ejection fraction of 49 back in 2017. 5.Hyponatremia secondary to dilutional, could not afford anti-V2, tolvaptan, because of financial. Social History: Denies smoking. Denies drinking. Denies drug abuse. Allergies: NO KNOWN DRUG ALLERGIES. Past Surgical History: Prostate surgery back in 2003, CABG in 1999, hip replacement in 2013. Review of Systems: Head and Neck: No red eye. No ear pain. GI: Decreased intake. : No polyuria. No dysuria. No hematuria. CONTAMINATED LAND CONSULTANT: Not applicable. Respiratory: Has shortness of breath. Cardiovascular: Has leg swelling. Has orthopnea. Musculoskeletal: No joint pain. Has only pain in the leg with multiple blisters. Endocrine: No polydipsia. Skin: No rash. Family History: Positive for hypertension, minimal change disease. Physical Examination: General: When I saw the patient, patient lying in bed. Vital Signs: Blood pressure of 120/64, pulse of 88, afebrile. Patient on 2 pillows on room air. Chest: Crackles bilateral base, more prominent left base. Heart: S1, S2. Systolic murmur. Abdomen: Soft, nontender. No organomegaly. No ascites. Could not appreciate any renal bruit. Extremities: +2 edema. Dressing on both legs. According to the report, he has multiple blisters. Neurologic: Alert, oriented x3. No focal. Laboratory Data: Back in February, BUN 91, creatinine 2.1, GFR of 31. In December, creatinine 1.8, GFR of 36. On this admission, sodium 137, potassium 4.4, bicarb 27, BUN 85, creatinine 2, GFR of 32, ca lcium 8.5, bilirubin 1.1, albumin 3. CK 41, TSH 2.8. Urinalysis; specific gravity of 1.010, negativ e for infection. WBC 5.6, H and H of 12.4/37.8, platelets 188. Back in June, H and H of 11.1/33 .8. ABG is still pending. Chest x-ray; cardiomegaly with congestion compared to old x-ray, slightly more congestion. Current Medications: The patient on include Bumex 2 mg b.i.d., aspirin, diphenhydramine, carvedilol 6.25 b.i.d., atorvastatin, gabapentin, bisacodyl, finasteride, KCl, thiamine. Assessment And Plan: 1.Acute kidney injury secondary to cardiorenal, over volume with respiratory symptoms. I am going t o go ahead and discontinue oral Bumex, start the patient on IV Bumex 2 mg b.i.d., and will monitor e patient. The patient is going to be placed on fluid restriction and daily weights. We will send f or renal ultrasound and protein and creatinine and we will follow up. 2.Hypertension, controlled optimal. We will keep utilizing blood pressure for more diuresis. 3.Hyponatremia secondary to dilutional secondary to congestive heart failure. Continue diuresis. 4.Congestive heart failure exacerbation. As above. 5.Respiratory distress secondary to congestive heart failure exacerbation. I am going to continue t o optimize his diuresis and we will get ABG. 6.Edema secondary to congestive heart failure exacerbation. TSH within normal limits. Repeat PC ra rené. Continue diuresis as above. 7.Deconditioning. Continue PT, OT. 8.Blisters on the leg secondary to peripheral edema. We will consult wound care. Thank you Dr. Geller for allowing us to participate in the care of your patient. BERNY Voice ID: [id number] Report ID: [id number]
--- NOTE | 2019-03-05 16:33 | RAD REPORT ---
EXAM DESCRIPTION: US - Renal Ultrasound-Complete - 03/05/2019 3:46 pm CLINICAL HISTORY: Renal failure COMPARISON: Ultrasound July 11 FINDINGS: The right kidney measures 9.6 x 4.3 x 4.6 cm. The left kidney measures 9.0 x 4.1 x 4.1 cm . Renal cortical thickness and echogenicity are normal. No hydronephrosis or suspicious renal mass. No bladder wall thickening or mass. No intraluminal stone or mass. IMPRESSION: No hydronephrosis or suspicious renal mass. No significant findings or interval changes. Differences in renal size measurement between the curren t and prior exam are believed be technical rather than true interval volume loss.
[2019-03-05] MEDS: ATORVASTATIN 10 MG TAB PO SCH (20:12)
--- NOTE | 2019-03-05 22:29 | HP ---
Date of Admission: 03/04/2019 Chief Complaint: Open wounds, blisters, both legs, right more than the left. History Of Present Illness: 78-year-old male was brought to the office with blister formation, weepy lesions, and open wounds of both legs, right more than the left. He has been seeing the nephrologis t for chronic renal failure. According to the patient they cut down his diuretics because of worseni ng of kidney failure. I spoke to the map clerk, he advised admission and possible IV diuresis wit h albumin IV and wound care. Patient is admitted. Past Medical History: History of congestive heart failure, chronic renal failure, osteoarthritis, hy perlipidemia. Past Surgical History: Positive for coronary bypass surgery, prostate surgery, left hip replacement, and hernia repair. Allergies: NONE. Home Medications: Please refer to the chart. Review of Systems: Patient denied any chest pain or shortness of breath. Physical Examination: General: Revealed a 78-year-old male, in moderate pain. HEENT: Negative. Neck: Supple. JVD negative. Chest: Few scattered wheezes, otherwise negative. Heart: Regular. Abdomen: Soft. Extremities: There is diffuse area of swelling in both legs, right more than the left with open woun ds and blister formation, and weeping lesions. Pedal pulses are difficult to feel on account of the swelling. Assessment: 1.Open wounds and weepy lesions of both legs, right more than the left. 2.Chronic renal failure, worsening. 3.Hypertension. 4.Known coronary artery disease. 5.Congestive heart failure. 6.Hyperlipidemia. 7.Status post coronary bypass surgery. Plan: Patient received IV Lasix pending Nephrology consultation. After consultation a final plan wi ll be documented. SANDIE/YUNG Voice ID: [id number]
[2019-03-06 05:06] LABS: Magnesium 2.5 mg/dL (1.8-2.4); Phosphorus 3.2 mg/dL (2.5-4.9); Potassium 3.8 mmol/L (3.5-5.1)
[2019-03-06] MEDS: POTASSIUM CL SA 10 MEQ TAB PO SCH (09:28)
[2019-03-06] MEDS: THIAMINE HCL 100 MG TABLET PO SCH (09:28)
[2019-03-06] MEDS: HYDROCODONE/APAP 5/325 MG TAB PO SCH ×3 (09:28→21:00)
[2019-03-06] MEDS: ASPIRIN 81 MG CHEWABLE TABLET PO SCH (09:29)
[2019-03-06] MEDS: CARVEDILOL 6.25 MG TAB PO SCH ×2 (09:29→21:42)
[2019-03-06] MEDS: BUMETANIDE 1 MG/4 ML VIAL IV SCH ×2 (09:29→21:39)
[2019-03-06] MEDS: GABAPENTIN 300 MG CAP PO SCH ×3 (09:29→21:42)
[2019-03-06] MEDS: FINASTERIDE 5 MG TAB PO SCH (09:29)
[2019-03-06] MEDS: MUPIROCIN 2% OINT 22GM TUBE TOP SCH (09:29)
[2019-03-06] MEDS: MEDIHONEY 44 ML TOPICAL TUBE TOP SCH (09:30)
[2019-03-06] MEDS ORDERED: BUMETANIDE 1 MG/4 ML VIAL IV ONE (10:02)
[2019-03-06] MEDS: CEFEPIME/SWI 2gm 2 GM/20 ML SYR IV SCH ×2 (12:46→21:00)
--- NOTE | 2019-03-06 14:18 | PN ---
Date of Progress Note: 03/06/2019 Subjective: The patient was admitted with CHF exacerbation, acute kidney injury secondary to cardior enal, hyponatremia. The patient was started on aggressive diuresis today, feeling some dryness in hi s mouth, otherwise been okay. Physical Examination: Vital Signs: Blood pressure 114/67, pulse of 81. Patient had good urine output of 2400. The patient negative of 1600 so far. Weight did not change. Chest: Faint crackles on the left base. Heart: S1, S2. Systolic murmur. Abdomen: Soft, nontender. Extremities: Trace edema. Dressing on both legs. Neurologic: Alert and oriented x3, not focalized. Laboratory Data: WBC 5.6, H and H 12.4/37.8, platelets 188. Sodium 139, potassium 3.8, bicarb 34, B UN 82, creatinine 1.7, calcium 8.8, phosphorus 3.2, magnesium 2.5, albumin 3. Medications: Current medications the patient on include. 1.Aspirin. 2.Diphenhydramine. 3.Atorvastatin. 4.Carvedilol 6.25 b.i.d. 5.Bumex 2 mg b.i.d. 6.Bisacodyl. 7.Finasteride. Assessment And Plan: 1.Acute kidney injury, normal size kidney 9.6/9, proteinuric, nonnephrotic, recovered, still on the over volume side. I am going to go ahead and continue on current diuresis. We will consider changin g him to oral tomorrow and we will follow up. 2.Hypertension, controlled, optimal. Continue current medication. 3.Hyponatremia, dilutional, resolved. 4.Congestive heart failure exacerbation as above. Continue to optimize fluid status. SOFYA/YUNG Voice ID: [id number] Report ID: [id number]
--- NOTE | 2019-03-06 16:53 | PN ---
The patient has lost fluid and his blisters are smaller. The wounds have grown pseudomonas. He star hermes on cefepime. The patient is having difficulty swallowing. He will have barium swallow study and speech therapy. SANDIE/YUNG Voice ID: [id number] Report ID: [id number]
[2019-03-06] MEDS: ATORVASTATIN 10 MG TAB PO SCH (21:00)
[2019-03-07 06:16] LABS: Albumin 2.8 g/dL (3.4-5.0); Magnesium 2.4 mg/dL (1.8-2.4); Phosphorus 2.9 mg/dL (2.5-4.9); Potassium 3.4 mmol/L (3.5-5.1)
[2019-03-07 07:17] VITALS: BMI 22.9
[2019-03-07] MEDS: FINASTERIDE 5 MG TAB PO SCH (09:17)
[2019-03-07] MEDS: POTASSIUM CL SA 10 MEQ TAB PO SCH (09:18)
[2019-03-07] MEDS: CARVEDILOL 6.25 MG TAB PO SCH ×2 (09:18→21:43)
[2019-03-07] MEDS: ASPIRIN 81 MG CHEWABLE TABLET PO SCH (09:18)
[2019-03-07] MEDS: THIAMINE HCL 100 MG TABLET PO SCH (09:18)
[2019-03-07] MEDS: HYDROCODONE/APAP 5/325 MG TAB PO SCH ×3 (09:18→21:44)
[2019-03-07] MEDS: BUMETANIDE 1 MG/4 ML VIAL IV SCH (09:19)
[2019-03-07] MEDS: GABAPENTIN 300 MG CAP PO SCH ×3 (09:19→21:44)
[2019-03-07] MEDS: ENOXAPARIN 30 MG/0.3 ML SQ SCH (09:20)
[2019-03-07] MEDS: CEFEPIME/SWI 2gm 2 GM/20 ML SYR IV SCH (09:20)
[2019-03-07] MEDS: MEDIHONEY 44 ML TOPICAL TUBE TOP SCH (09:21)
[2019-03-07] MEDS: MUPIROCIN 2% OINT 22GM TUBE TOP SCH (09:21)
[2019-03-07] MEDS ORDERED: POTASSIUM 25 MEQ EFFERV TAB PO ONE (11:51)
--- NOTE | 2019-03-07 15:06 | RAD REPORT ---
EXAM DESCRIPTION: RAD - Barium Swallow Modified - 03/07/2019 2:35 pm CLINICAL HISTORY: Dysphagia, aspiration COMPARISON: None. TECHNIQUE: The patient was given liquid, semi-solid and solid forms of barium. Lateral view fluorosc opic imaging was performed in conjunction with speech pathology service. FINDINGS: Cineloop acquisitions: 24 Fluoro time: 4 minutes 58 seconds LARYNGEAL PENETRATION: WITH THIN SMALL SIP - CLEARED, WITH THIN BY STRAW (LARGE SIP) - NOT CLEARED ASPIRATION: WITH HONEY - NO COUGH PHARYNGEAL RESIDUE: VALLECULAR AND PYRIFORM - SEVERE WITH HONEY, PUREE, AND CHEWABLE SOLIDS, REDUCED TO MILD-MOD WITH CUED DRY SWALLOWS POSTERIOR WALL MILD WITH THIN DELAYED SWALLOW RESPONSE (1-3 SEC) MODERATE TO SEVERE ESOPHAGEAL STASIS, WITH SOLIDS, CLEARED SLOWLY WITH NECTAR WASH IMPRESSION: Normal modified barium swallow.
--- NOTE | 2019-03-07 16:01 | PN ---
Date of Progress Note: 03/07/2019 Subjective: Patient was admitted with CHF exacerbation, cardiorenal syndrome, anasarca. Patient was started on aggressive diuresis with Bumex 2 mg b.i.d. Kidney function is back to his baseline. Pat ient feeling better. Patient lost 9 pounds in the last 2 days. Physical Examination: Vital Signs: Blood pressure 126/80, pulse of 95, afebrile. Chest: Clear to auscultation. Heart: S1, S2. Systolic murmur. Abdomen: Soft, nontender. Extremity: Wrapped. Both leg edema has been subsided significantly. Neuro: Alert, oriented. No focal. Laboratory Data: WBC 5.6, H and H 12.4/37.8, platelets 188. Sodium 139, potassium is 3.4, bicarb 34 , BUN 71, creatinine 1.7 trending down. GFR up to 39, calcium 8.6, phosphorus 2.9, magnesium of 2.4, albumin 2.8. Current Medications: The patient on include: 1.Aspirin. 2.Cefepime 2 g b.i.d. 3.Lovenox. 4.Atorvastatin. 5.Carvedilol 6.25 b.i.d. 6.Gabapentin. 7.Bumex 2 mg b.i.d. 8.Bisacodyl. 9.Hydrocodone. Assessment And Plan: 1.Acute kidney injury secondary to cardiorenal, recover, resolved back to baseline. 2.I am going to go ahead and change the Bumex to p.o. and we will continue to monitor the patient. 3.Cellulitis secondary to Pseudomonas. I am going to go ahead and change the cefepime to daily and we will continue to follow up the patient. 4.Congestive heart failure exacerbation as above. Change the Bumex to p.o. 5.Hypokalemia. We will supplement. 6.Deconditioning. Continue PT/OT. SOFYA/YUNG Voice ID: [id number] Report ID: [id number]
[2019-03-07] MEDS: ATORVASTATIN 10 MG TAB PO SCH (21:00)
[2019-03-07] MEDS: BUMETANIDE 1 MG TABLET PO SCH (21:43)
--- NOTE | 2019-03-08 00:07 | PN ---
The patient still has oozing from the leg; however, there is no purulent drainage. His swelling gene rally is better. I spoke to him about the long-term salt and fluid control as well as elevation of t he legs. I will discuss discharge plans with the service desk analyst on the case. SANDIE/YUNG Voice ID: [id number] Report ID: [id number]
[2019-03-08 06:01] LABS: Albumin 2.6 g/dL (3.4-5.0); Magnesium 2.4 mg/dL (1.8-2.4); Phosphorus 2.9 mg/dL (2.5-4.9); Potassium 3.6 mmol/L (3.5-5.1)
[2019-03-08] MEDS: BUMETANIDE 1 MG TABLET PO SCH ×2 (07:39→20:12)
[2019-03-08] MEDS: ENOXAPARIN 30 MG/0.3 ML SQ SCH (07:39)
[2019-03-08] MEDS: FINASTERIDE 5 MG TAB PO SCH (07:39)
[2019-03-08] MEDS: THIAMINE HCL 100 MG TABLET PO SCH (07:39)
[2019-03-08] MEDS: HYDROCODONE/APAP 5/325 MG TAB PO SCH ×3 (07:40→20:08)
[2019-03-08] MEDS: CARVEDILOL 6.25 MG TAB PO SCH ×2 (07:40→20:13)
[2019-03-08] MEDS: ASPIRIN 81 MG CHEWABLE TABLET PO SCH (07:40)
[2019-03-08] MEDS: GABAPENTIN 300 MG CAP PO SCH ×3 (07:40→20:09)
[2019-03-08] MEDS: POTASSIUM CL SA 10 MEQ TAB PO SCH (07:41)
[2019-03-08] MEDS: MEDIHONEY 44 ML TOPICAL TUBE TOP SCH (07:42)
[2019-03-08] MEDS: MUPIROCIN 2% OINT 22GM TUBE TOP SCH (07:42)
[2019-03-08] MEDS: CEFEPIME/SWI 2gm 2 GM/20 ML SYR IV SCH (09:25)
--- NOTE | 2019-03-08 13:26 | P.PN ---
Subjective Date of Service: 03/08/19 Chief Complaint: Fluid overload Pt was admitted with SOB and anasarca , and CHF exacerbation found to have DREW today Cr improving near baseline Bumex switched to PO pending discharge plan cleared for discharge from nephrology point of view Physical Examination - Vital Signs Temperature: 97.2 F Blood Pressure: 150/100 Pulse: 80 Respirations: 19 Pulse Ox (%): 95 - Physical Exam General: Alert, In no apparent distress HEENT: Atraumatic Neck: Supple, Without JVD or thyroid abnormality Respiratory: Clear to auscultation bilaterally Cardiovascular: Regular rate/rhythm, Normal S1 S2, No gallops, No rubs Musculoskeletal: No swelling, Other (B/l foot dressing ) - Studies Laboratory Data (last 24 hrs) 03/08/19 05:19: Sodium 140, Potassium 3.6, BUN 71 H, Creatinine 1.67 H, Glucose 128 H, Phosphorus 2.9, Magnesium 2.4 Microbiology Data (last 24 hrs): 03/04/19 17:35 Wound - Right Lower Leg Gram Stain - Final 03/04/19 17:35 Wound - Right Lower Leg Anaerobic Culture - Final NO ANAEROBES GROWN. 03/05/19 16:34 Wound - L Leg (Upper) Gram Stain - Final 03/05/19 16:34 Wound - L Leg (Upper) Culture & Sensitivity - Final Pseudomonas Aeruginosa 03/05/19 16:32 Wound - L Leg (Lower) Gram Stain - Final 03/05/19 16:32 Wound - L Leg (Lower) Culture & Sensitivity - Final Pseudomonas Aeruginosa Assessment And Plan - Current Problems (Diagnosis) (1) Acute kidney injury superimposed on chronic kidney disease Current Visit: No Status: Acute (2) Diastolic heart failure Current Visit: No Status: Acute Qualifiers: (3) Hypokalemia Current Visit: No Status: Acute - Plan Acute kidney injury on CKD III due to cardiorenal syndrome improving cont PO bu,ex US: mo hydro HTN controlled CHF cont diuretics hypokalemia due to diuresis resolved LE celluilitis cont Abx deblity cont PT/OT
[2019-03-08] MEDS: ATORVASTATIN 10 MG TAB PO SCH (20:09)
--- NOTE | 2019-03-08 22:20 | PN ---
Patient is doing better; however, he feels tired. I spoke to his regarding his care. Also expl ained that very likely in view of his chronic issues, may benefit from skilled nursing placement. She a greed and she also has severe rheumatoid arthritis and she told me that she cannot help him physicall y, so very likely patient will be transferred to a nursing facility and he regain some strength to fu nction at home. SANDIE/YUNG Voice ID: [id number] Report ID: [id number]
[2019-03-09 05:23] LABS: Albumin 2.6 g/dL (3.4-5.0); Magnesium 2.3 mg/dL (1.8-2.4); Phosphorus 3.1 mg/dL (2.5-4.9); Potassium 3.2 mmol/L (3.5-5.1)
[2019-03-09] MEDS: HYDROCODONE/APAP 5/325 MG TAB PO SCH ×5 (06:23→21:39)
[2019-03-09] MEDS: BUMETANIDE 1 MG TABLET PO SCH (08:53)
[2019-03-09] MEDS: CEFEPIME/SWI 2gm 2 GM/20 ML SYR IV SCH (08:53)
[2019-03-09] MEDS: ENOXAPARIN 30 MG/0.3 ML SQ SCH (08:53)
[2019-03-09] MEDS: THIAMINE HCL 100 MG TABLET PO SCH (08:54)
[2019-03-09] MEDS: GABAPENTIN 300 MG CAP PO SCH ×3 (08:54→21:39)
[2019-03-09] MEDS: FINASTERIDE 5 MG TAB PO SCH (08:54)
[2019-03-09] MEDS: CARVEDILOL 6.25 MG TAB PO SCH ×2 (08:54→21:00)
[2019-03-09] MEDS: ASPIRIN 81 MG CHEWABLE TABLET PO SCH (08:55)
[2019-03-09] MEDS: POTASSIUM CL SA 10 MEQ TAB PO SCH (08:56)
[2019-03-09] MEDS: MUPIROCIN 2% OINT 22GM TUBE TOP SCH (08:56)
[2019-03-09] MEDS: MEDIHONEY 44 ML TOPICAL TUBE TOP SCH (08:56)
[2019-03-09] MEDS ORDERED: POTASSIUM CL SA 10 MEQ TAB PO ONE ×2 (09:00→14:00)
[2019-03-09] MEDS: ACETAMINOPHEN 325 MG TABLET PO PRN (10:48)
--- NOTE | 2019-03-09 11:57 | P.PN ---
Subjective Date of Service: 03/09/19 Chief Complaint: Fluid overload Subjective: New changes Pt was admitted with SOB and anasarca , and CHF exacerbation found to have DREW today complaining of back pain, counldnt participate in PT/OT Spiked fever , F/U septic W/U will reduce bumex to daily will add 20meq of KCL Physical Examination - Vital Signs Temperature: 98.5 F Blood Pressure: 102/60 Pulse: 91 Respirations: 16 Pulse Ox (%): 93 - Physical Exam General: Alert, Mild distress, Other (thin ) HEENT: Atraumatic Neck: Supple, Without JVD or thyroid abnormality Respiratory: Clear to auscultation bilaterally, Normal air movement Cardiovascular: No edema, Normal S1 S2, Systolic murmur Gastrointestinal: Normal bowel sounds, Soft and benign Musculoskeletal: No swelling, Other (B/L leg dressing ) - Studies Laboratory Data (last 24 hrs) 03/09/19 04:32: Sodium 138, Potassium 3.2 L, BUN 74 H, Creatinine 1.68 H, Glucose 152 H, Phosphorus 3.1, Magnesium 2.3 Microbiology Data (last 24 hrs): 03/05/19 16:34 Wound - L Leg (Upper) Gram Stain - Final 03/05/19 16:34 Wound - L Leg (Upper) Anaerobic Culture - Final NO ANAEROBES GROWN. 03/05/19 16:32 Wound - L Leg (Lower) Gram Stain - Final 03/05/19 16:32 Wound - L Leg (Lower) Anaerobic Culture - Final NO ANAEROBES GROWN. 03/04/19 17:35 Wound - Right Lower Leg Gram Stain - Final 03/04/19 17:35 Wound - Right Lower Leg Anaerobic Culture - Final NO ANAEROBES GROWN. Assessment And Plan - Current Problems (Diagnosis) (1) Acute kidney injury superimposed on chronic kidney disease Current Visit: No Status: Acute (2) Diastolic heart failure Current Visit: No Status: Acute Qualifiers: (3) Hypokalemia Current Visit: No Status: Acute - Plan Acute kidney injury on CKD III due to cardiorenal syndrome improving will reduce Bumex to po daily US: mo hydro HTN controlled CHF cont diuretics hypokalemia due to diuresis will replace and check Mg tomorrow Fever in Abx F/U septic W/u LE celluilitis cont Abx deblity cont PT/OT
--- NOTE | 2019-03-09 12:03 | RAD REPORT ---
EXAM DESCRIPTION: RAD - Chest Single View - 03/09/2019 11:48 am CLINICAL HISTORY: CHF COMPARISON: March 04 TECHNIQUE: AP portable chest image was obtained 1144 hours . FINDINGS: Bilateral pleural effusions are present decreased slightly from prior imaging. Cardiomegal y remains. Vasculature remains prominent. Sternotomy wires are in place. No pneumothorax. No acute chriss [place] abnormality seen. No acute aortic findings suspected. IMPRESSION: Bilateral pleural effusions slightly improved from comparison. Cardiomegaly and vascular engorgement remain.
[2019-03-09 14:36] LABS: Urine Appearance CLEAR; Urine Bilirubin NEGATIVE (NEG); Urine Blood NEGATIVE (NEG); Urine Color YELLOW; Urine Glucose NEGATIVE (NEG); Urine Protein NEGATIVE (NEG); Urine Urobilinogen 0.2 mg/dL (0.2-1.0); Urine pH 6.5 (5.0-7.0)
[2019-03-09 14:37] LABS: Urine Microscopic Reflex NO UMIC
[2019-03-09] MEDS: VANCOMYCIN 1.25 GM in NA CHLORIDE 0.9% 250 ML IVPB SCH (15:04)
[2019-03-09 16:00] LABS: Absolute Lymphocytes (CBC) 0.5 K/uL (0.7-4.9); Basophils % 0.4 % (0-1.3); Hematocrit 37.1 % (39.6-49.0); Lymphocytes % 4.9 % (15.3-44.8); MPV 8.5 fL (7.6-11.3); RBC Red Blood Cell Count 4.32 M/uL (4.33-5.43)
--- NOTE | 2019-03-09 16:09 | PN ---
Patient suddenly started having fever today of 101. Blood cultures were taken in view of possible MR SA superinfection and open wounds. Patient is started on vancomycin. Patient also will have CBC. I spoke to the family regarding this change in clinical status. SANDIE/YUNG Voice ID: [id number] Report ID: [id number]
[2019-03-09 16:27] LABS: Blood Morphology Comment NOT SEEN (NOT SEEN); Platelet Estimate ADEQ; Urine White Blood Cell Casts OK
[2019-03-09] MEDS: ATORVASTATIN 10 MG TAB PO SCH (21:39)
[2019-03-09] MEDS ORDERED: NA CHLORIDE 0.9% 250 ML ONE ×2 (22:28→23:53)
[2019-03-10 06:10] LABS: Albumin 2.4 g/dL (3.4-5.0); Magnesium 2.3 mg/dL (1.8-2.4); Phosphorus 2.8 mg/dL (2.5-4.9); Potassium 3.4 mmol/L (3.5-5.1)
[2019-03-10] MEDS: MUPIROCIN 2% OINT 22GM TUBE TOP SCH (09:00)
[2019-03-10] MEDS: BUMETANIDE 1 MG TABLET PO SCH (10:01)
[2019-03-10] MEDS: POTASSIUM CL SA 10 MEQ TAB PO SCH (10:12)
[2019-03-10] MEDS: GABAPENTIN 300 MG CAP PO SCH ×3 (10:12→21:51)
[2019-03-10] MEDS: ASPIRIN 81 MG CHEWABLE TABLET PO SCH (10:13)
[2019-03-10] MEDS: FINASTERIDE 5 MG TAB PO SCH (10:13)
[2019-03-10] MEDS: HYDROCODONE/APAP 5/325 MG TAB PO SCH ×3 (10:13→21:52)
[2019-03-10] MEDS: THIAMINE HCL 100 MG TABLET PO SCH (10:13)
[2019-03-10] MEDS: ENOXAPARIN 30 MG/0.3 ML SQ SCH (10:21)
[2019-03-10] MEDS: CEFEPIME/SWI 2gm 2 GM/20 ML SYR IV SCH (10:24)
--- NOTE | 2019-03-10 11:31 | P.PN ---
Subjective Date of Service: 03/10/19 Chief Complaint: Fluid overload Pt was admitted with SOB and anasarca , and CHF exacerbation found to have DREW peripheral edema resolved, but pt still have pleural effusion today hypotensive last night, received 500ml NS bolus off coreg , BP borderline Bumex reduced to daily, CXR still shows , pleural effusion and have rales on exam , will consider increasing to bid once BP normalized Monitor Vancomycin level , F/U culture results K replaced prognosis guarded Physical Examination - Vital Signs Temperature: 98.8 F Blood Pressure: 97/64 Pulse: 104 Respirations: 16 Pulse Ox (%): 95 - Physical Exam General: Alert, Mild distress, Other (thin ) HEENT: Atraumatic Neck: Supple, Without JVD or thyroid abnormality Respiratory: Crackles/rales Cardiovascular: No edema, Regular rate/rhythm, Normal S1 S2, No gallops, No rubs , No murmurs Gastrointestinal: Soft and benign Musculoskeletal: No swelling - Studies Laboratory Data (last 24 hrs) 03/10/19 06:00: Magnesium Cancelled 03/10/19 05:11: Sodium 139, Potassium 3.4 L, BUN 85 H, Creatinine 1.66 H, Glucose 142 H, Phosphorus 2.8, Magnesium 2.3 03/09/19 15:45: WBC 9.5 D, Hgb 11.9 L, Hct 37.1 L, Plt Count 128 L D Microbiology Data (last 24 hrs): 03/05/19 16:34 Wound - L Leg (Upper) Gram Stain - Final 03/05/19 16:34 Wound - L Leg (Upper) Anaerobic Culture - Final NO ANAEROBES GROWN. 03/05/19 16:32 Wound - L Leg (Lower) Gram Stain - Final 03/05/19 16:32 Wound - L Leg (Lower) Anaerobic Culture - Final NO ANAEROBES GROWN. Assessment And Plan - Current Problems (Diagnosis) (1) Acute kidney injury superimposed on chronic kidney disease Current Visit: No Status: Acute (2) Diastolic heart failure Current Visit: No Status: Acute Qualifiers: (3) Hypokalemia Current Visit: No Status: Acute - Plan Acute kidney injury on CKD III due to cardiorenal syndrome willcont Bum,ex daily for now , and consider to increase to bid once BP stable US: mo hydro HTN BP borderline now Coreg on Hold CHF cont Bumex as above hypokalemia due to diuresis and decreased Po intake replace prn Sepsis on Abx F/U septic W/u Monitor vancomycin level LE celluilitis cont Abx deblity cont PT/OT Prognosis guarded
[2019-03-10] MEDS: MEDIHONEY 44 ML TOPICAL TUBE TOP SCH (16:26)
--- NOTE | 2019-03-10 19:55 | PN ---
Patient is afebrile. His kidney function does not look any better. Patient had an episode of hypote nsion, probably from volume depletion. He does not have any other evidence of sepsis. Patient will be continued on vancomycin as well as cefepime. RRK/MODL Voice ID: [id number] Report ID: [id number]
[2019-03-10] MEDS: ATORVASTATIN 10 MG TAB PO SCH (21:51)
[2019-03-11] MEDS: VANCOMYCIN 1.25 GM in NA CHLORIDE 0.9% 250 ML IVPB SCH (02:05)
[2019-03-11] MEDS: ACETAMINOPHEN 325 MG TABLET PO PRN (03:22)
[2019-03-11] MEDS: BISACODYL E.C. 5 MG TAB PO PRN ×2 (06:20→10:33)
[2019-03-11] MEDS: MUPIROCIN 2% OINT 22GM TUBE TOP SCH (09:00)
[2019-03-11] MEDS: POTASSIUM CL SA 10 MEQ TAB PO SCH (09:00)
[2019-03-11] MEDS: MEDIHONEY 44 ML TOPICAL TUBE TOP SCH (09:00)
[2019-03-11] MEDS: CEFEPIME/SWI 2gm 2 GM/20 ML SYR IV SCH (10:33)
[2019-03-11] MEDS: THIAMINE HCL 100 MG TABLET PO SCH (10:33)
[2019-03-11] MEDS: ASPIRIN 81 MG CHEWABLE TABLET PO SCH (10:33)
[2019-03-11] MEDS: GABAPENTIN 300 MG CAP PO SCH ×3 (10:33→21:05)
[2019-03-11] MEDS: BUMETANIDE 1 MG TABLET PO SCH (10:33)
[2019-03-11] MEDS: HYDROCODONE/APAP 5/325 MG TAB PO SCH ×3 (10:34→21:05)
[2019-03-11] MEDS: ENOXAPARIN 30 MG/0.3 ML SQ SCH (10:34)
[2019-03-11] MEDS: FINASTERIDE 5 MG TAB PO SCH (10:35)
[2019-03-11] MEDS ORDERED: LACTULOSE 20 GM/30 ML UCUP PO ONE (10:55)
--- NOTE | 2019-03-11 14:14 | PN ---
Chief Complaint: Chronic kidney disease, fluid overload, congestive heart failure. Patient develope d hypotension, was taken off Coreg. Blood pressure was borderline and he received 500 mL of normal s kimberly. He came to the hospital because of CHF exacerbation, shortness of breath, and acut e kidney injury secondary to acute cardiorenal syndrome. Peripheral edema has resolved and he has pl eural effusion. Patient was treated with vancomycin and vancomycin trough level has been checked thi s admission. Review of Systems: The patient denies PND or orthopnea. The patient is complaining of constipation. Physical Examination: Lungs: . Heart: S1, S2. Abdomen: Soft, benign. Extremities: There is slight edema in both legs. Laboratory Work: Hemoglobin 11.9, WBC 9.5, platelet count 128,000. Sodium 139, potassium 3.4, chlor kisha is [QAMARKER], BUN 85, creatinine 1.66, magnesium 2.3, albumin 2.4. Impression And Plan: 1.Acute on chronic kidney injury with cardiorenal syndrome, severe prerenal azotemia. The patient r eceived IV fluids for blood pressure support. The patient is on vancomycin, pending blood culture. 2.Hypokalemia. Continue replacement. Check magnesium level. At this point, magnesium level is wit hin normal limits. 3.Hypotension. Coreg dose was reduced. Monitor blood pressure and adjust medication with Coreg for congestive heart failure and cardiorenal syndrome as needed. 4.Diastolic congestive heart failure. Continue low-sodium diet. 5.Acute kidney injury, superimposed on chronic kidney disease stage 3. Avoid nephrotoxic medication s. 6.Sepsis on antibiotics. Monitor vancomycin trough level. 7.Congestive heart failure on Bumex. Continue treatment. Monitor fluid balance. ABRAHAM/MODL Voice ID: [id number] Report ID: [id number]
[2019-03-11] MEDS: ATORVASTATIN 10 MG TAB PO SCH (21:06)
--- NOTE | 2019-03-12 01:24 | PN ---
Patient's renal function is still not improved. His leg swelling is better. His temperature is norm al. In view of response, patient will be continued on same antibiotics. SANDIE/YUNG Voice ID: [id number] Report ID: [id number]
[2019-03-12] MEDS: HYDROCODONE/APAP 5/325 MG TAB PO SCH ×3 (08:33→22:02)
[2019-03-12] MEDS: GABAPENTIN 300 MG CAP PO SCH ×3 (08:33→22:02)
[2019-03-12] MEDS: FINASTERIDE 5 MG TAB PO SCH (08:35)
[2019-03-12] MEDS: POTASSIUM CL SA 10 MEQ TAB PO SCH ×2 (08:35→14:00)
[2019-03-12] MEDS: BUMETANIDE 1 MG TABLET PO SCH ×2 (08:36→22:02)
[2019-03-12] MEDS: THIAMINE HCL 100 MG TABLET PO SCH (08:36)
[2019-03-12] MEDS: ASPIRIN 81 MG CHEWABLE TABLET PO SCH (08:36)
[2019-03-12] MEDS: ENOXAPARIN 30 MG/0.3 ML SQ SCH (08:37)
[2019-03-12] MEDS: MUPIROCIN 2% OINT 22GM TUBE TOP SCH (08:37)
[2019-03-12] MEDS: MEDIHONEY 44 ML TOPICAL TUBE TOP SCH (08:37)
[2019-03-12] MEDS: CEFEPIME/SWI 2gm 2 GM/20 ML SYR IV SCH (08:39)
[2019-03-12 09:46] LABS: Absolute Lymphocytes (CBC) 0.3 K/uL (0.7-4.9); Basophils % 0.3 % (0-1.3); Hematocrit 35.8 % (39.6-49.0); Lymphocytes % 4.4 % (15.3-44.8); MPV 8.6 fL (7.6-11.3); RBC Red Blood Cell Count 4.24 M/uL (4.33-5.43)
--- NOTE | 2019-03-12 12:57 | RAD REPORT ---
EXAM DESCRIPTION: CT - Abdomen Pelvis Wo Contrast - 03/12/2019 12:30 pm CLINICAL HISTORY: low abdominal pain and constipation COMPARISON: Abdomen Pelvis Wo Contrast dated 05/20/2018Abdomen Pelvis Wo Contrast dated 05/20/20 18; Barium Swallow Modified dated 03/07/2019CT May 20, 2018 TECHNIQUE: Axial [address] imaging of the abdomen and pelvis was performed without IV contrast. No IV contrast was given because of allergy, abnormal renal function, patient refusal or physician re quest. Oral contrast was given. All CT scans are performed using dose optimization technique as appropriate and may include automated exposure control or mA/KV adjustment according to patient size. FINDINGS: Cardiomegaly present without pericardial effusion. Moderate bilateral pleural effusions ar e present with atelectasis at each base. Liver shows a subtle nodularity to the capsule. No focal liver lesions seen. Liver parenchymal assess ment is limited in the absence of IV contrast. [place] artifact from a metallic device external to the body. No acute spleen or pancreas process suspected. Gallbladder and biliary tree are also without witt spicious finding. Gallstones can be occult on CT imaging. No biliary tree dilatation. No hydronephrosis or suspicious renal mass. Punctate calcifications are present in the renal pyramids are calices. These are similar to the comparison. No significant adrenal finding. Isodense renal mas ses and pyelonephritis cannot be excluded in the absence of IV contrast. Urinary bladder is dilated e xtending above the umbilicus level. Bladder wall thickening or mass not seen. Pelvic floor and bladde r base assessment are limited due to spray artifact from left hip prosthesis. No gastric abnormality. No dilated small bowel. Moderate stool volume is present in the right-side of the colon. Moderate diverticulosis is present. There is contrast collecting in many of the diverticu la. Rectum is dilated to 6 cm and contains a dense collection of stool and contrast. No free air or pneumatosis. There is a trace amount free fluid along the right lateral liver capsule. A 3.5 centimeter fluid collection in the superior aspect of the right inguinal canal is present. Thi s is slightly larger than the prior study. This may be peritoneal fluid within a right inguinal herni a. Severe right hip joint degenerative change present. Bony degenerative changes are present. No patholo gic bone process. Dense arterial tree calcifications are present. IMPRESSION: Rectum is dilated to 6 cm and filled with stool and dense contrast presumably from the m odified barium swallow. Moderate stool volume in the cecum and ascending colon. Dilated urinary bladder extending above the level of the umbilicus. Moderately large bilateral pleural effusions with lung base atelectasis. Cardiomegaly. Full assessment is limited is the absence of IV contrast.
[2019-03-12] MEDS: VANCOMYCIN 1.25 GM in NA CHLORIDE 0.9% 250 ML IVPB SCH (14:47)
[2019-03-12] MEDS ORDERED: FLEET ENEMA ADULT PR ONE (15:00)
--- NOTE | 2019-03-12 17:06 | PN ---
Patient generally feels weak. However, his blood pressure is normal. He is afebrile. However, gadiel l function has not improved any more. In view of multiple problems, patient will very likely need lo ng-term care. This was explained to the patient. Patient is to have a consultation for LTAC. SANDIE/YUNG Voice ID: [id number] Report ID: [id number]
--- NOTE | 2019-03-12 17:35 | CON ---
History Of Present Illness: Patient is a 78-year-old male coming in after fall, lower extremity woun ds on both sides. Patient has also renal insufficiency and some sort of bladder obstruction causing his bladder to distend and severe constipation on CT scan. Patient is currently being treated with v ancomycin and cefepime. Abscess culture report on wound is growing Pseudomonas aeruginosa, which is sensitive to everything except Zosyn and intermediate sensitivity to meropenem. Past Medical History: Patient has cardiac surgery history, left hip replacement, hernia repair. Social History: Nonsmoker, nondrinker. Family History: Noncontributory. Medications: Vancomycin, cefepime. See MAR for other medications. Allergies: NO KNOWN DRUG ALLERGIES. Review of Systems: A 10-point review was performed. Physical Examination: General: This is a 78-year-old male, lying in bed, family by the bedside, in mild respiratory distre ss. Vital Signs: Temperature of 98, pulse 85, respirations 20, blood pressure 112/62. HEENT: Unremarkable. Neck: Supple. Lungs: Basal crackles. Heart: S1 and S2 regular. Abdomen: Soft. Bowel sounds present. Extremities: Multiple superficial wounds noted on both lower extremities. Laboratory Data: WBC 7.7, hemoglobin 12, platelets 152. Chemistry shows sodium 139, potassium 3.4, chloride 99, bicarb 33, BUN 35, creatinine 1.66, glucose is 142. Chest x-ray shows that the patient has bilateral pleural effusions, slightly improved from previous comparison. CT scan of abdominal an d pelvis showed patient has severe constipation and previously dilated urinary bladder extended above the level of umbilicus, moderate large bilateral pleural effusions with lung base atelectasis. Assessment And Plan: A 78-year-old male with multiple medical problems, coming in with lower extremi ty wounds and cellulitis secondary to Pseudomonas aeruginosa with severe bladder distention and const ipation and bilateral pleural effusions. We will recommend to insert Higgins catheter, also continue a ntibiotic empirically. Continue Xeroform gauze to the wound sites and Medihoney and follow patient terrance quiles. Thank you Dr. Geller for consult. NF/MODL Voice ID: [id number] Report ID: [id number]
[2019-03-12] MEDS: BISACODYL E.C. 5 MG TAB PO PRN (22:01)
[2019-03-12] MEDS: ATORVASTATIN 10 MG TAB PO SCH (22:03)
--- NOTE | 2019-03-12 22:46 | P.PN ---
Subjective Date of Service: 03/12/19 Chief Complaint: Fluid overload Subjective: New changes Pt was admitted with SOB and anasarca , and CHF exacerbation found to have DREW peripheral edema resolved, but pt still have pleural effusion , pt spiked fever , bp dropped , bumex reduced to one daily today CT scan showed B/l pleural effusion , fecal impaction, and distended bladder will place [place] will increase Bumex to bid Wound culture multiple organisms prognosis guarded Physical Examination - Vital Signs Temperature: 97.8 F Blood Pressure: 115/70 Pulse: 104 Respirations: 16 Pulse Ox (%): 99 - Physical Exam General: Alert, Cachectic, Mild distress HEENT: Atraumatic Neck: Supple, Without JVD or thyroid abnormality Respiratory: Normal air movement, Diminished Cardiovascular: No edema, Regular rate/rhythm, Normal S1 S2, No gallops, No rubs , No murmurs Gastrointestinal: Normal bowel sounds, Soft and benign Musculoskeletal: No swelling - Studies Laboratory Data (last 24 hrs) 03/12/19 12:55: Creatinine 1.56 H 03/12/19 09:28: WBC 7.7 D, Hgb 12.0 L, Hct 35.8 L, Plt Count 152 03/12/19 05:45: Magnesium 2.5 H Assessment And Plan - Current Problems (Diagnosis) (1) Acute kidney injury superimposed on chronic kidney disease Current Visit: No Status: Acute (2) Diastolic heart failure Current Visit: No Status: Acute Qualifiers: (3) Hypokalemia Current Visit: No Status: Acute - Plan Acute kidney injury on CKD III due to cardiorenal syndrome will increase Bumex to BID Urinary retention likely due to decrease mobility and fecal impaction will pace [place] HTN controlled now cont to hold Coreg CHF cont Bumex as above hypokalemia due to diuresis and decreased Po intake replace prn Sepsis on Abx ID on baord deblity cont PT/OT Prognosis guarded
[2019-03-13] MEDS: GABAPENTIN 300 MG CAP PO SCH ×3 (08:42→21:11)
[2019-03-13] MEDS: ENOXAPARIN 30 MG/0.3 ML SQ SCH (08:42)
[2019-03-13] MEDS: HYDROCODONE/APAP 5/325 MG TAB PO SCH ×3 (08:42→21:00)
[2019-03-13] MEDS: CEFEPIME/SWI 2gm 2 GM/20 ML SYR IV SCH (08:42)
[2019-03-13] MEDS: BUMETANIDE 1 MG TABLET PO SCH ×2 (08:42→21:11)
[2019-03-13] MEDS: THIAMINE HCL 100 MG TABLET PO SCH (08:43)
[2019-03-13] MEDS: POTASSIUM CL SA 10 MEQ TAB PO SCH (08:43)
[2019-03-13] MEDS: FINASTERIDE 5 MG TAB PO SCH (08:43)
[2019-03-13] MEDS: ASPIRIN 81 MG CHEWABLE TABLET PO SCH (08:43)
[2019-03-13] MEDS: MEDIHONEY 44 ML TOPICAL TUBE TOP SCH (08:43)
[2019-03-13] MEDS: MUPIROCIN 2% OINT 22GM TUBE TOP SCH (08:43)
--- NOTE | 2019-03-13 17:39 | PN ---
Subjective: Patient lying in bed, feels a little better today. Continues to have cough and congesti on. Yesterday, Higgins catheter got about 2 L of urine. Abdominal pain has gone down. Also, had sergio l movements since yesterday. Objective: Vital Signs: Temperature 97.9, pulse 112, respirations 19, blood pressure 106/62. Lungs: Basal crackles, right side more than left. Heart: S1, S2. Regular. Abdomen: Soft, nontender. Bowel sounds present. Extremities: No edema. Laboratory Data: WBC 7.7, hemoglobin 12, platelets are 152. No new labs are available today. His c reatinine 1.56. GFR is 43. Microdata; wound cultures from his are growing Pseudomonas aeruginosa. Assessment And Plan: Bilateral infiltrates with pneumonitis. Lower extremity wound, venous stasis u lcers, are growing Pseudomonas aeruginosa. Continue cefepime. Consider adding Levaquin. Continue a ntibiotic and supportive care and wound care. We will follow patient as needed. Agree to transfer p atient to long-term acute care for pneumonia and lower extremity cellulitis and venous stasis ulcers. NF/MODL Voice ID: [id number] Report ID: [id number]
--- NOTE | 2019-03-13 17:55 | PN ---
Date of Progress Note: 03/13/2019 Subjective: Patient was admitted with acute kidney injury secondary to cardiorenal, response to curr ent diuresis. Physical Examination: Vital Signs: Blood pressure 106/62, pulse of 112, afebrile. Patient had good urine output of 1900. Chest: Faint crackles on the left base. Heart: S1, S2. Systolic murmur. Abdomen: Soft, nontender. Extremities: Plus edema. Laboratory Data: H and H 12/35.8. Sodium 139, potassium 3.4, bicarb 33, BUN 85, creatinine 1.5, GFR of 43, albumin 2.4. Current Medications: The patient on include: 1.Vancomycin. 2.Aspirin. 3.Cefepime. 4.Lovenox. 5.Bumex 2 mg b.i.d. 6.Finasteride. 7.KCl. Assessment And Plan: 1.Acute kidney injury secondary to cardiorenal, back to baseline. Continue current dose of Bumex. We will monitor. 2.Hypertension, controlled, optimal. Continue current treatment. 3.Congestive heart failure exacerbation, advanced. Continue supportive care. 4.Cellulitis of the leg, Pseudomonas. We will follow up with primary. 5.Deconditioning. Continue PT/OT. SOFYA/MODL Voice ID: [id number] Report ID: [id number]
[2019-03-13] MEDS ORDERED: SIMETHICONE 80 MG TAB PO PRN (18:13)
[2019-03-13] MEDS: ATORVASTATIN 10 MG TAB PO SCH (21:13)
--- NOTE | 2019-03-13 23:46 | PN ---
Patient still feels weak and I explained to him the reason for LTAC. The patient however is afebrile , even though he still has open wounds. Infectious Disease consult and recommendations are noted. L TAC consultation was not done when I made rounds. SANDIE/YUNG Voice ID: [id number] Report ID: [id number]
[2019-03-14] MEDS: VANCOMYCIN 1.25 GM in NA CHLORIDE 0.9% 250 ML IVPB SCH (02:29)
[2019-03-14] MEDS: BISACODYL E.C. 5 MG TAB PO PRN (02:36)
[2019-03-14] MEDS: GABAPENTIN 300 MG CAP PO SCH ×3 (08:26→21:49)
[2019-03-14] MEDS: FINASTERIDE 5 MG TAB PO SCH (08:26)
[2019-03-14] MEDS: BUMETANIDE 1 MG TABLET PO SCH (08:27)
[2019-03-14] MEDS: MUPIROCIN 2% OINT 22GM TUBE TOP SCH (08:28)
[2019-03-14] MEDS: MEDIHONEY 44 ML TOPICAL TUBE TOP SCH (08:29)
[2019-03-14] MEDS: POTASSIUM CL SA 10 MEQ TAB PO SCH (08:29)
[2019-03-14] MEDS: ENOXAPARIN 30 MG/0.3 ML SQ SCH (08:29)
[2019-03-14] MEDS: ASPIRIN 81 MG CHEWABLE TABLET PO SCH (08:31)
[2019-03-14] MEDS: CEFEPIME/SWI 2gm 2 GM/20 ML SYR IV SCH (08:32)
[2019-03-14] MEDS: HYDROCODONE/APAP 5/325 MG TAB PO SCH ×3 (09:00→21:49)
[2019-03-14] MEDS: THIAMINE HCL 100 MG TABLET PO SCH (10:44)
--- NOTE | 2019-03-14 16:26 | PN ---
Date of Progress Note: 03/14/2019 Subjective: The patient was admitted with acute kidney injury secondary to cardiorenal. The patient has been diuresed very well. Patient during the hospitalization developed urine retention. Higgins w as inserted. Also, patient had cellulitis of lower extremity, been started on antibiotic, seen by ID . Physical Examination: Vital Signs: Blood pressure 110/64, pulse of 97, afebrile. Chest: Clear to auscultation. Heart: S1, S2. Systolic murmur. Abdomen: Soft. Mild tenderness on the left lower quadrant. Extremities: Dressing both legs. No edema. Laboratory Data: WBC 7.7, H and H 12/35.8, platelets 152. Sodium 139, potassium 3.4, bicarb 33, BUN 85, creatinine 1.5. GFR up to 43. Current Medications: The patient on its include: 1.Cefepime. 2.Vancomycin 1.25 every 36 hours. 3.Lovenox. 4.Atorvastatin. 5.Gabapentin. 6.Bumex 2 mg b.i.d. 7.Simethicone. 8.Bisacodyl. 9.Finasteride. 10.Hydrocodone. 11.Thiamin. Assessment And Plan: 1.Acute kidney injury secondary to cardiorenal, recovered, resolved back to baseline. Currently nor mal volume. I am going to go ahead and decrease the Bumex to 2 mg in the morning, 1 mg at night. We will monitor the patient. 2.Hypertension, controlled, optimal. We will utilize blood pressure for diuresis. 3.Cellulitis. Follow up with ID. 4.Congestive heart failure, advanced. Currently normal volume. We will follow up with primary. 5.Deconditioning. Continue PT/OT. SOFYA/MODL Voice ID: [id number] Report ID: [id number]
[2019-03-14] MEDS ORDERED: BUMETANIDE 1 MG/4 ML VIAL IV SCH (17:00)
[2019-03-14 18:46] LABS: Urine Appearance CLOUDY; Urine Bilirubin NEGATIVE (NEG); Urine Blood 2+ (NEG); Urine Color YELLOW; Urine Glucose NEGATIVE (NEG); Urine Protein 1+ (NEG); Urine Specific Gravity 1.015 (1.005-1.030); Urine Urobilinogen 0.2 mg/dL (0.2-1.0); Urine pH 5.5 (5.0-7.0)
[2019-03-14 18:52] LABS: Urine Microscopic Reflex ORDER UMIC
[2019-03-14 19:26] LABS: Urine Bacteria 20-50 /HPF (NONE SEEN)
[2019-03-14 19:27] LABS: Urine Amorphous Sediment 3+ /HPF (NONE SEEN); Urine Culture Reflex Order REFLEXED; Urine Mucus 4+ /HPF (NONE SEEN)
[2019-03-14] MEDS: ATORVASTATIN 10 MG TAB PO SCH (21:50)
--- NOTE | 2019-03-15 02:48 | PN ---
Patient is afebrile. He still complaints of abdominal pain; however, CT scan showed a large amount o f stool. Patient's insurance has not agreed for LTAC. I spoke to the charge nurse for alternative p lacement plan. SANDIE/YUNG Voice ID: [id number] Report ID: [id number]
[2019-03-15 06:22] LABS: Albumin 2.3 g/dL (3.4-5.0); Potassium 3.2 mmol/L (3.5-5.1)
[2019-03-15] MEDS: MUPIROCIN 2% OINT 22GM TUBE TOP SCH (09:00)
[2019-03-15] MEDS: HYDROCODONE/APAP 5/325 MG TAB PO SCH ×3 (09:00→14:00)
[2019-03-15] MEDS: MEDIHONEY 44 ML TOPICAL TUBE TOP SCH (09:00)
[2019-03-15] MEDS: ENOXAPARIN 30 MG/0.3 ML SQ SCH (09:32)
[2019-03-15] MEDS: BUMETANIDE 1 MG TABLET PO SCH (09:33)
[2019-03-15] MEDS: THIAMINE HCL 100 MG TABLET PO SCH (09:33)
[2019-03-15] MEDS: GABAPENTIN 300 MG CAP PO SCH ×3 (09:33→21:10)
[2019-03-15] MEDS: FINASTERIDE 5 MG TAB PO SCH (09:33)
[2019-03-15] MEDS: POTASSIUM CL SA 10 MEQ TAB PO SCH (09:34)
[2019-03-15] MEDS: ASPIRIN 81 MG CHEWABLE TABLET PO SCH (09:34)
[2019-03-15] MEDS: CEFEPIME/SWI 2gm 2 GM/20 ML SYR IV SCH (09:46)
--- NOTE | 2019-03-15 12:21 | P.PN ---
Subjective Date of Service: 03/15/19 Chief Complaint: Fluid overload Subjective: Worsening Pt was admitted with SOB and anasarca , and CHF exacerbation found to have DREW peripheral edema resolved, but pt still have pleural effusion , pt spiked fever , bp dropped , bumex reduced to one daily today Cr elevated will reduce Bumex Will supplement K pt with poor prognosis, agreed for hospice evaluation will consult hospice discussed with Pt , son , Staff and Dr Estrada Physical Examination - Vital Signs Temperature: 97.8 F Blood Pressure: 113/69 Pulse: 108 Respirations: 16 Pulse Ox (%): 97 - Physical Exam General: Oriented x3, Cachectic, Moderate distress HEENT: Atraumatic Neck: Supple, No LAD, Without JVD or thyroid abnormality Respiratory: Diminished Cardiovascular: No edema, Regular rate/rhythm, Normal S1 S2 Musculoskeletal: Other (B/l leg dressing ) - Studies Laboratory Data (last 24 hrs) 03/15/19 05:25: Sodium 141, Potassium 3.2 L, BUN 100 H, Creatinine 1.86 H, Glucose 137 H, Phosphorus 3.0 Microbiology Data (last 24 hrs): 03/09/19 10:28 Blood - Blood Aerobic Blood Culture - Final No growth in 5 days. 03/09/19 10:28 Blood - Blood Anaerobic Blood Culture - Final No growth in 5 days. 03/09/19 10:35 Blood - Blood Aerobic Blood Culture - Final No growth in 5 days. 03/09/19 10:35 Blood - Blood Anaerobic Blood Culture - Final No growth in 5 days. Assessment And Plan - Current Problems (Diagnosis) (1) Acute kidney injury superimposed on chronic kidney disease Current Visit: No Status: Acute (2) Diastolic heart failure Current Visit: No Status: Acute Qualifiers: (3) Hypokalemia Current Visit: No Status: Acute - Plan Acute kidney injury on CKD III due to cardiorenal syndrome will reduce bumex Urinary retention likely due to decrease mobility and fecal impaction cont [place] HTN controlled now CHF cont Bumex as above hypokalemia due to diuresis and decreased Po intake replace prn Sepsis on Abx ID on baord deblity cont PT/OT Poor prognosis , will consult Hospice
[2019-03-15] MEDS ORDERED: POTASSIUM 25 MEQ EFFERV TAB PO ONE (14:00)
[2019-03-15] MEDS ORDERED: BUMETANIDE 2.5 MG/10 ML VIAL IV SCH (17:00)
[2019-03-15] MEDS: ATORVASTATIN 10 MG TAB PO SCH (21:10)
[2019-03-16] MEDS: HYDROCODONE/APAP 5/325 MG TAB PO PRN ×4 (00:21→21:24)
--- NOTE | 2019-03-16 00:47 | PN ---
Patient is doing poorly. I spoke to Nephrology human resources consultant. His opinion is that his renal failure is getting worse. Probably, he is a candidate for hospice care. After consultations with the family, family also admitted for hospice care. He will be transferred to hospice care and DNR will be done. SANDIE/YUNG Voice ID: [id number] Report ID: [id number]
[2019-03-16 06:45] LABS: Albumin 2.3 g/dL (3.4-5.0); Phosphorus 2.8 mg/dL (2.5-4.9); Potassium 3.6 mmol/L (3.5-5.1)
[2019-03-16] MEDS: MEDIHONEY 44 ML TOPICAL TUBE TOP SCH (09:00)
[2019-03-16] MEDS: MUPIROCIN 2% OINT 22GM TUBE TOP SCH (09:00)
[2019-03-16] MEDS: ENOXAPARIN 30 MG/0.3 ML SQ SCH (09:02)
[2019-03-16] MEDS: BUMETANIDE 1 MG TABLET PO SCH (09:02)
[2019-03-16] MEDS: THIAMINE HCL 100 MG TABLET PO SCH (09:02)
[2019-03-16] MEDS: ASPIRIN 81 MG CHEWABLE TABLET PO SCH (09:02)
[2019-03-16] MEDS: GABAPENTIN 300 MG CAP PO SCH ×3 (09:03→21:24)
[2019-03-16] MEDS: CEFEPIME/SWI 2gm 2 GM/20 ML SYR IV SCH (09:03)
[2019-03-16] MEDS: POTASSIUM CL SA 10 MEQ TAB PO SCH (09:03)
[2019-03-16] MEDS: FINASTERIDE 5 MG TAB PO SCH (09:04)
--- NOTE | 2019-03-16 16:47 | RAD REPORT ---
EXAM DESCRIPTION: RAD - Abdomen 1 View (KUB) - 03/16/2019 4:23 pm CLINICAL HISTORY: Abdomen pain. FINDINGS: The rectum is mildly distended with contrast measuring 6 centimeters. Contrast is scattere d throughout diverticula within the colon. Air is present within nondilated large and small bowel in a nonspecific fashion. Small to moderate right pleural effusion
[2019-03-16] MEDS: ATORVASTATIN 10 MG TAB PO SCH (21:24)
[2019-03-16] MEDS ORDERED: DIGOXIN 0.25 MG/ML AMP IV ONE (21:56)
--- NOTE | 2019-03-17 00:31 | PN ---
Patient generally have not improved. His x-ray done today showed evidence of large amount of stools in the rectum. I spoke to the family in spite of this patient and family requests for pain medicatio n, which is going to make his constipation worse. However, in view of his hospice status, he will re ceive pain medication. SANDIE/YUNG Voice ID: [id number] Report ID: [id number]
--- NOTE | 2019-03-17 02:32 | PN ---
Date of Progress Note: 03/16/2019 Chief Complaint: Acute on chronic kidney injury, cardiorenal syndrome, and congestive heart failure exacerbation. Patient is on diuretics. Patient received supplementation with potassium replacement. Overall, the patient has poor prognosis and family consider hospice evaluation. Review of Systems: Patient denies chest pain, palpitation. Physical Examination: Lungs: Diminished breath sounds at bases. Heart: S1, S2. Abdomen: Soft, benign. Extremities: Slight edema. Laboratory Work: Hemoglobin 12.0, WBC 7.7, platelet count is 152,000. Chemistries showed sodium 138 , potassium 3.6, BUN 100, creatinine 1.71, calcium 8.6, albumin 2.3. Impression And Plan: 1.Acute on chronic kidney injury, prerenal azotemia, cardiorenal syndrome. Family is requesting [facility] pice care. Patient was treated with diuretics for congestive heart failure. There is small moderate right pleural effusion. 2.Continue diuretics low-sodium diet. 3.Hypertension. Monitor blood pressure. Adjust medication accordingly. 4.Patient may be a candidate for dialysis, although hospice care was consider by family members. 5.Hypokalemia. Replacement was ordered. Monitor potassium level. 6.Diastolic congestive heart failure. Continue low-sodium diet. 7.Urinary retention, likely due to BPH. Continue Higgins catheter. 8.Congestive heart failure. Continue Bumex. Monitor fluid balance. 9.Sepsis. Continue antibiotics. EB/MODL Voice ID: [id number] Report ID: [id number]
[2019-03-17] MEDS: HYDROCODONE/APAP 5/325 MG TAB PO PRN ×3 (05:31→23:05)
[2019-03-17 06:38] LABS: Albumin 2.4 g/dL (3.4-5.0); Phosphorus 2.9 mg/dL (2.5-4.9); Potassium 4.2 mmol/L (3.5-5.1)
[2019-03-17] MEDS: MUPIROCIN 2% OINT 22GM TUBE TOP SCH (09:00)
[2019-03-17] MEDS: MEDIHONEY 44 ML TOPICAL TUBE TOP SCH (09:00)
[2019-03-17] MEDS: BUMETANIDE 1 MG TABLET PO SCH (10:13)
[2019-03-17] MEDS: GABAPENTIN 300 MG CAP PO SCH ×3 (10:13→20:27)
[2019-03-17] MEDS: THIAMINE HCL 100 MG TABLET PO SCH (10:13)
[2019-03-17] MEDS: ASPIRIN 81 MG CHEWABLE TABLET PO SCH (10:14)
[2019-03-17] MEDS: FINASTERIDE 5 MG TAB PO SCH (10:14)
[2019-03-17] MEDS: POTASSIUM CL SA 10 MEQ TAB PO SCH (10:14)
[2019-03-17] MEDS: CEFEPIME/SWI 2gm 2 GM/20 ML SYR IV SCH (10:15)
[2019-03-17] MEDS: ENOXAPARIN 30 MG/0.3 ML SQ SCH (10:15)
[2019-03-17] MEDS ORDERED: POLYETHYL GLY 3350 17 GM/DOSE PO ONE (14:00)
[2019-03-17] MEDS ORDERED: DIGOXIN 0.25 MG/ML AMP IV SCH (16:00)
[2019-03-17] MEDS: ATORVASTATIN 10 MG TAB PO SCH (20:27)
[2019-03-17 20:33] LABS: Absolute Lymphocytes (CBC) 0.5 K/uL (0.7-4.9); Basophils % 0.6 % (0-1.3); Lymphocytes % 5.2 % (15.3-44.8); RBC Red Blood Cell Count 4.57 M/uL (4.33-5.43)
[2019-03-17] MEDS ORDERED: SODIUM CHLORIDE 0.9% 10ML INJ IV PRN (21:20)
[2019-03-17] MEDS ORDERED: PANTOPRAZOLE 40 MG INJ IVP ONE (21:21)
--- NOTE | 2019-03-17 22:14 | PN ---
Patient generally was stable. However, this evening, patient started having dark stools. I ordered a stool for occult blood as well as CBC to see if there is some active bleeding. Patient's temperatu re is normal. He has atrial fibrillation. However, his heart rate is over 100. Additional dose of digoxin was given. SANDIE/YUNG Voice ID: [id number] Report ID: [id number]
[2019-03-17 22:24] LABS: Blood Morphology Comment NOT SEEN (NOT SEEN); Platelet Estimate ADEQ
--- NOTE | 2019-03-18 01:54 | PN ---
Date of Progress Note: 03/17/2019 Chief Complaint: Acute on chronic kidney injury, cardiorenal syndrome, generalized weakness, fatigue , decreased p.o. intake. History: Patient was undergoing treatment with diuretics. He has high BUN creatinine ratio. He dev eloped constipation and is treated with a laxative. Review of Systems: Denies chest pain, palpitation. Physical Examination: Lungs: Decreased breath sounds at bases. Heart: S1, S2. Abdomen: Soft, benign. EXTREMITIES: Slight edema. Laboratory Data: BUN is 100, creatinine is 1.7, calcium 8.6, albumin 2.3. Impression And Plan: 1.Acute on chronic kidney injury with prerenal azotemia, cardiorenal syndrome. Family is requesting hospice and patient will continue diuretics for congestive heart failure. He has moderate pleural e ffusion. He may be a candidate for dialysis. 2.Hypertension. Adjust blood pressure accordingly. 3.Hypokalemia. Replacement ordered. 4.Diastolic congestive heart failure. Continue low-sodium diet. 5.Urinary retention, likely BPH. Continue Higgins catheter. 6.Sepsis. Continue antibiotics. EB/MODL Voice ID: [id number] Report ID: [id number]
--- NOTE | 2019-03-18 02:09 | CON ---
Date of Consultation: 03/17/2019 Patient admitted on 03/04/[address] Geller. I was asked to see the patient because of rapid atrial fibrillation. The patient was seen on 03/17/2019. History Of Present Illness: Mr. Gamez is very well known to me. Unfortunately, he is very ill and it was actually requested by the family for hospice care. He is a do not resuscitate. He had come in with cellulitis and left extremity wound secondary to Pseudomonas. He has severe constipation and bladder issues and obstruction. He had fallen. He has a history of hypertension, congestive heart failure, coronary artery disease as well as dyslipidemia. Has had chronic atrial fibrillation. His last EF in the hospital showed an ejection fraction of 49%. At one point, it was lower. He was supp osed to be taking aspirin, Lipitor, Bumex, Coreg, finasteride, Neurontin, potassium, thiamin, Entrest o, Aldactone at home. However, because of his infections and hypotension, his Coreg has been held. I believe this is the reason his heart rate is elevated. He also has some renal insufficiency. He h as effusion on the chest x-ray. I believe Mr. Gamez's heart rate is secondary to his overall illne ss. I do not recommend any change in treatment at this point. We can certainly give him a very low- dose beta-blockers if his blood pressure is elevated. Under normal circumstances, we would consider amiodarone, but I do not think this is necessary at this point. The patient is on Lovenox. I will d iscuss the case further with Dr. Geller. FERN/YUNG Voice ID: [id number] Report ID: [id number]
[2019-03-18 06:03] LABS: Absolute Lymphocytes (CBC) 0.3 K/uL (0.7-4.9); Basophils % 0.7 % (0-1.3); Hematocrit 35.4 % (39.6-49.0); Lymphocytes % 3.9 % (15.3-44.8); MPV 9.1 fL (7.6-11.3); RBC Red Blood Cell Count 4.15 M/uL (4.33-5.43)
[2019-03-18 06:19] LABS: Phosphorus 2.7 mg/dL (2.5-4.9); Potassium 4.1 mmol/L (3.5-5.1)
[2019-03-18] MEDS: THIAMINE HCL 100 MG TABLET PO SCH (08:47)
[2019-03-18] MEDS: ENOXAPARIN 30 MG/0.3 ML SQ SCH (08:47)
[2019-03-18] MEDS: BUMETANIDE 1 MG TABLET PO SCH (08:47)
[2019-03-18] MEDS: CEFEPIME/SWI 2gm 2 GM/20 ML SYR IV SCH (08:47)
[2019-03-18] MEDS: ASPIRIN 81 MG CHEWABLE TABLET PO SCH (08:47)
[2019-03-18] MEDS: GABAPENTIN 300 MG CAP PO SCH ×3 (08:47→21:16)
[2019-03-18] MEDS: POTASSIUM CL SA 10 MEQ TAB PO SCH (08:47)
[2019-03-18] MEDS: FINASTERIDE 5 MG TAB PO SCH (08:47)
[2019-03-18] MEDS: MEDIHONEY 44 ML TOPICAL TUBE TOP SCH (08:48)
[2019-03-18] MEDS: MUPIROCIN 2% OINT 22GM TUBE TOP SCH (08:48)
--- NOTE | 2019-03-18 11:46 | RAD REPORT ---
EXAM DESCRIPTION: Brian Single View03/18/2019 11:38 am CLINICAL HISTORY: Chest pain COMPARISON: February 2019 FINDINGS: Small to moderate bilateral pleural effusions with mild to moderate bilateral pulmonary op acities. The heart is mildly to moderately enlarged. Postsurgical changes involve the chest. IMPRESSION: Mild to moderate CHF
[2019-03-18] MEDS: HYDROCODONE/APAP 5/325 MG TAB PO PRN (15:26)
--- NOTE | 2019-03-18 16:05 | PN ---
Date of Progress Note: 03/18/2019 Chief Complaint: Acute on chronic kidney injury, cardiorenal syndrome, ejection fraction 49%. Cardi ology was consulted for congestive heart failure. History: Patient has limited p.o. intake. He is complaining of some abdominal pain and he had a KUB done, did not show an ileus. Patient denies nausea or vomiting. He has poor appetite. He was jenaro hermes with laxatives for constipation. He has history of diabetes mellitus, and due to infection and h e developed hypotensive episode, Coreg was held. Review of Systems: Patient appears to be lethargic. He cannot provide review of systems. Physical Examination: Lungs: Diminished breath sounds in bases. Heart: S1, S2. Abdomen: Soft, benign. Extremities: Slight edema. Laboratory Data: BUN 99, creatinine 1.77, sodium 142, potassium 4.1, chloride 105, CO2 of 30, phosph orus 2.7, albumin 2.0. Impression And Plan: 1.Acute on chronic kidney injury, prerenal azotemia. Patient was treated with diuretics for congest pao heart failure. Patient may benefit from dialysis if azotemia is not in good control. Family is reviewing option for hospice care, but we want to talk with water pollution control inspector tomorrow about further recom mendations as far as Nephrology care. 2.Congestive heart failure with systolic dysfunction. Monitor fluid balance. 3.Wound infection. Patient has Pseudomonas aeruginosa left upper extremity infection and left lower extremity infection. Continue antibiotics, adjust dose to renal f unction. EB/MODL Voice ID: [id number] Report ID: [id number]
[2019-03-18] MEDS: ATORVASTATIN 10 MG TAB PO SCH (21:16)
[2019-03-18] MEDS: JUVEN PACKET PO SCH (21:16)
[2019-03-18] MEDS: ENSURE ENLIVE 237 ML CAN PO SCH (21:20)
[2019-03-19] MEDS: HYDROCODONE/APAP 5/325 MG TAB PO PRN ×3 (00:04→12:31)
[2019-03-19 06:37] LABS: Albumin 2.2 g/dL (3.4-5.0); Phosphorus 2.5 mg/dL (2.5-4.9)
[2019-03-19] MEDS: THIAMINE HCL 100 MG TABLET PO SCH (08:58)
[2019-03-19] MEDS: ASPIRIN 81 MG CHEWABLE TABLET PO SCH (08:58)
[2019-03-19] MEDS: GABAPENTIN 300 MG CAP PO SCH ×2 (08:58→13:07)
[2019-03-19] MEDS: FINASTERIDE 5 MG TAB PO SCH (08:58)
[2019-03-19] MEDS: JUVEN PACKET PO SCH (08:59)
[2019-03-19] MEDS: ENOXAPARIN 30 MG/0.3 ML SQ SCH (08:59)
[2019-03-19] MEDS: POTASSIUM CL SA 10 MEQ TAB PO SCH (08:59)
[2019-03-19] MEDS: MUPIROCIN 2% OINT 22GM TUBE TOP SCH (09:00)
[2019-03-19] MEDS: ENSURE ENLIVE 237 ML CAN PO SCH (09:00)
[2019-03-19] MEDS: MEDIHONEY 44 ML TOPICAL TUBE TOP SCH (09:00)
[2019-03-19] MEDS: CEFEPIME/SWI 2gm 2 GM/20 ML SYR IV SCH (09:00)
[2019-03-19 09:16] VITALS: O2SAT 98
[2019-03-19 13:09] VITALS: BP 139/79; TEMP 97.6
--- NOTE | 2019-03-19 16:51 | PN ---
Date of Progress Note: 03/19/2019 History: Patient was admitted with CHF exacerbation and anasarca. Patient had severe deconditioning , has UTI, urinary retention, and cellulitis. Physical Examination: Vital Signs: Blood pressure 115/65, pulse of 93. Chest: Faint crackles in the base. Heart: S1 and S2, regular. Systolic murmur. Abdomen: Soft, nontender. Extremities: No edema. Dressings on both legs. Laboratory Data: WBC 7.5, H and H of 11.6/35.4, platelets 225. Sodium 141, potassium 4, bicarb 30, BUN 85, creatinine 1.6, calcium 8.5, phosphorus 2.5, albumin 2.2. Corrected calcium is 10.1. Current Medications: The patient on include aspirin, cefepime, Lovenox, atorvastatin, gabapentin, si methicone, finasteride. Assessment And Plan: 1.Chronic kidney disease stage 3, over volume secondary to cardiorenal. I am going to resume low do se of Bumex. I had long discussion with the patient in the presence of the family including the regarding the dialysis. Given the advanced congestive heart failure, I do not think the patient is going to be a good candidate to initiate renal replacement therapy, especially with the patient leani ng more to hospice. We will continue to monitor. Resume the Bumex. 2.Hypertension. Keep utilizing blood pressure to establish good volume control. 3.Urinary tract infection, cellulitis as by ID. 4.Congestive heart failure, advanced, ischemic cardiomyopathy, as by Cardiology. Continue diuresis. SOFYA/YUNG Voice ID: [id number] Report ID: [id number]
--- NOTE | 2019-03-19 19:27 | PN ---
Subjective: No new acute events. and increase heart rate. Objective: Vital Signs: Temperature 97, pulse 102, respirations 17, blood pressure 139/79. Lungs: Basal crackles. Heart: S1 and S2 regular. Abdomen: Soft, nontender. Bowel sounds present. Extremities: No edema. Imaging Data: Chest x-ray shows mild to moderate CHF. Laboratory Data: WBC 7.5, hemoglobin 11.6, platelets 225. Chemistry shows sodium 141, potassium 4, chloride 105, bicarb 30, BUN 85, creatinine 1.6, glucose 139. Micro data shows Pseudomonas aeruginosa from the wound cultures of the leg. Assessment And Plan: A 78-year-old male with lower extremity cellulitis and stasis ulceration with P seudomonas aeruginosa, currently being treated with cefepime. Continue antibiotic and supportive car e. We will follow the patient as needed. NF/MODL Voice ID: [id number] Report ID: [id number]
[2019-03-20] MEDS ORDERED: BUMETANIDE 1 MG TABLET PO SCH (09:00)
--- NOTE | 2019-03-28 03:27 | DS ---
Date of Discharge: 03/19/2019 Final Diagnoses: 1.Multiple leg wounds with infection. 2.Chronic venous insufficiency. 3.Kysek-el-xwsbfex renal failure. 4.Hypertension. 5.Known coronary artery disease. 6.Known congestive heart failure. 7.Hyperlipidemia. 8.Status post coronary artery bypass surgery. 9.Benign prostatic hypertrophy. 10.Chronic pain management issues. Hospital Course: This patient was admitted because of extensive wounds of both legs with oozing. Th e patient had a culture done after which he was started on vancomycin and cefepime. Eventually, pseu domonas was isolated. The patient had no evidence of urinary tract infection. The patient's fluid w as treated with Bumex. The patient, however, was doing poorly with oral intake and various other iss ues related to his kidney function. Renal consultation was obtained. Renal Service has changed the diuretic doses. The patient started having abdominal pain. Abdominal CAT scan was done, there was n o evidence of obstruction. He had large amount of stools. This was due to his pain medication. How ever, patient and family requested continued pain medication. Multiple consultations were done with the family and the patient regarding possible post discharge plan. After consulting multiple options family and the patient opted for hospice care. The patient was discharged to hospice care on 03/19. This patient also was seen by Infectious Disease, Dr. Berger for his leg wounds during the hospital s jory. Laboratory Data: The patient has extensive labs, please refer to the chart. SANDIE/YUNG Voice ID: [id number] Report ID: [id number]
== END 2019-03-19 15:02 | disposition hospice, inpatient (51) | DRG 291 ==
LOC: 4TH 16:28
PROVIDERS: ADMIT Internal Medicine; ATTEND Internal Medicine
DX: I13.0 Hypertensive heart and chronic kidney disease with heart failure and stage 1 through stage 4 chronic kidney disease, or unspecified chronic kidney disease (principal); I50.33 Acute on chronic diastolic (congestive) heart failure; J18.9 Pneumonia, unspecified organism; L03.116 Cellulitis of left lower limb; N17.9 Acute kidney failure, unspecified; I48.20 Chronic atrial fibrillation, unspecified; L03.115 Cellulitis of right lower limb; B96.5 Pseudomonas (aeruginosa) (mallei) (pseudomallei) as the cause of diseases classified elsewhere; E87.6 Hypokalemia; N18.3 Chronic kidney disease, stage 3 (moderate); Z23 Encounter for immunization; R33.9 Retention of urine, unspecified; K56.41 Fecal impaction; I87.8 Other specified disorders of veins; Z66 Do not resuscitate; I25.10 Atherosclerotic heart disease of native coronary artery without angina pectoris; N40.0 Benign prostatic hyperplasia without lower urinary tract symptoms; R06.03 Acute respiratory distress
CPT/HCPCS: 36415; 71045; 71046; 74018; 74176; 74230; 76770; 80053; 80069; 80202; 81003; 81015; 82274; 82550; 82553; 82565; 82570; 82805; 82947; 83605; 83735; 84156; 84443; 85025; 87040; 87070; 87075; 87077; 87086; 87088; 87186; 87205; 90471; 90670; 92526; 92610; 92611; 97110; 97116; 97161; 97530; 97542; 99251; C9113; J0692; J1160; J1650; J1940; J7030; Q2035